=== PATIENT | male | born 1955 | race Caucasian/White ===

== ENCOUNTER → 2017-01-01 | Outpatient (CLI) | payer BC ==
[~2017-01-01] MED LIST: ALBUAER19 INH; CYM/30 PO; DTR5 PO; FLNIN/ NAE; FLUT0.0529 NAE; FLUT1INH INH; FLUT50SP45 NAE; GABA1CAP4 PO; MELO15TA4 PO; NRN/300 PO; NRN/600 PO; NRN600 PO; ONDA4TAB10 SL; PANT1TAB48 PO; PROM25TA16 PO; PRT/40 PO; SIMV40TA2 PO; VNTHFA/IN INH; ZCR40 PO
[2017-01-01 17:42] LABS: URINE APPEARANCE TURBID (CLEAR); URINE COLOR DK YELLOW; URINE EPITHELIAL CELL AUTO 20-30 /lpf (0-5); URINE NITRITE NEG (NEG); URINE PH 5.5 (4.5-7.5); URINE SPECIFIC GRAVITY 1.029 (1.000-1.030); UROBILINOGEN NEG (NEG)
[2017-01-01 17:44] LABS: MANUAL MICROSCOPIC REQUIRED? NO; REVIEW REQ? NO
[2017-01-01 17:46] LABS: URINE BILIRUBIN NEG (NEG)
== END | disposition home or self-care (01) ==
LOC: C.LABBFT 12:39
PROVIDERS: ATTEND Internal Medicine
DX: R11.0 Nausea (principal)

== ENCOUNTER 2017-01-03 07:15 | Emergency (ER) | payer BC ==
[~2017-01-03] VITALS: Ht 177.8 cm; Wt 79.0 kg
[~2017-01-03 07:15] MED LIST changes: -CYM/30 PO; -FLNIN/ NAE; -FLUT50SP45 NAE; -MELO15TA4 PO; -NRN/300 PO; -NRN/600 PO; -NRN600 PO; -ONDA4TAB10 SL; -PANT1TAB48 PO; -PROM25TA16 PO; -SIMV40TA2 PO; -VNTHFA/IN INH
[2017-01-03 07:18] VITALS: TEMP 36.5; Ht 177.8 cm; Wt 79.0 kg
[2017-01-03] MEDS ORDERED: SODIUM CHLORIDE 0.9% 1000ML 1,000 ML IV STA ×2 (07:37→08:43)
[2017-01-03] MEDS ORDERED: ONDANSETRON INJ 2 MG/ML 2 ML VIAL IV STA (07:37)
[2017-01-03] MEDS ORDERED: OPTIRAY 320 IV PRN (07:45)
[2017-01-03 08:11] LABS: BASO % 0.4 %; BASO ABS # 0.04 K/uL (0-0.2); COMPLETE YES; EOS % 0.1 %; HEMATOCRIT 47.7 % (42-52); IG% 0.2 %; LYMPH % 16.9 %; LYMPH ABS # 1.73 K/uL (1.2-3.4); MEAN CELL VOLUME 89.3 fL (80-100); MEAN CORPUSCULAR HEMOGLOBIN 31.5 pg (25-34); MEAN CORPUSCULAR HGB CONC 35.2 g/dl (32-36); MEAN PLATELET VOLUME 10.8 fL (7.4-10.4); MONO % 10.4 %; PLATELET COUNT 305 K/uL (130-400); RED BLOOD COUNT 5.34 M/uL (4.7-6.1); WHITE BLOOD COUNT 10.24 K/uL (4.8-10.8)
[2017-01-03 08:19] LABS: BUN/CREATININE RATIO 19.5 (10-20); CREATININE 1.6 mg/dl (0.60-1.40); POTASSIUM 3.6 mmol/L (3.5-5.1)
--- NOTE | 2017-01-03 08:39 | DIAGNOSTIC IMAGING REPORT ---
Right upper quadrant ultrasound GALLBLADDER-ABD LIMITED CLINICAL HISTORY: UPPER ABDOMINAL PAIN pain. Nausea. TECHNIQUE: Ultrasound COMPARISON STUDY: None FINDINGS: Mild fatty infiltration of liver. Normal gallbladder. Common bile duct 4 mm. Pancreas and right kidney unremarkable. 3 cm upper pole right renal cyst. IMPRESSION: 1. 3 cm upper pole right renal cyst. 2. Fatty infiltration of liver. 3. Otherwise negative study Electronically signed by: Ted Vazquez M.D. 01/03/2017 8:37 AM Dictated Date/Time: 01/03/2017 8:36 AM
[2017-01-03] MEDS ORDERED: NRN600 PO (08:44)
[2017-01-03] MEDS ORDERED: FLNIN/ NAE (08:44)
[2017-01-03] MEDS ORDERED: MELO15TA4 PO (08:44)
[2017-01-03] MEDS ORDERED: PROM25TA16 PO (08:44)
--- NOTE | 2017-01-03 10:35 | DIAGNOSTIC IMAGING REPORT ---
ABDOMEN AND PELVIS CT WITH IV AND ORAL CONTRAST CT DOSE: 449.03 mGy.cm HISTORY: Pain. Nausea. UPPER ABDOMINAL PAIN TECHNIQUE: Multiaxial CT images of the abdomen and pelvis were performed following the use of intravenous and oral contrast. COMPARISON STUDY: None. FINDINGS: Mild fatty infiltration of liver. Fatty replacement of the pancreas. Small stable right renal cyst. Nonobstructive bowel pattern. IMPRESSION: No acute process. Electronically signed by: Ted Vazquez M.D. 01/03/2017 10:33 AM Dictated Date/Time: 01/03/2017 10:32 AM
[2017-01-03 10:48] LABS: URINE APPEARANCE CLEAR (CLEAR); URINE BILIRUBIN NEG (NEG); URINE COLOR YELLOW; URINE EPITHELIAL CELL AUTO >30 /lpf (0-5); URINE NITRITE NEG (NEG); URINE SPECIFIC GRAVITY 1.015 (1.000-1.030); UROBILINOGEN NEG (NEG)
[2017-01-03 10:53] LABS: MANUAL MICROSCOPIC REQUIRED? NO; REVIEW REQ? YES
[2017-01-03 11:00] LABS: URINE PATH CASTS 5-10 GRANULAR CASTS /lpf (0)
[2017-01-03] MEDS ORDERED: ONDA4TAB10 SL (11:07)
--- NOTE | 2017-01-03 11:11 | EMERGENCY ROOM VISIT NOTE ---
History First contact with patient: 07:25 (Nick Barclay PA) First contact with patient: 07:25 (Jovani Moreno M.D.) Chief Complaint: GI ASSESSMENT Stated Complaint: SHAKES,STOMACH CRAMPS,CAN'T EAT/DRINK,BACK PAIN Nursing Triage Summary: abdominal pain started "abruptly" on thursday. "I dont have an appetite" patient drinking coffee. (Nick Barclay PA) History of Present Illness The patient is a 61 year old male who presents to the Emergency Room with complaints of nausea, vomiting, stomach cramps, weakness and fatigue. The patient reports that his symptoms started his past Thursday, or 5 days ago. He was seen by his PCP on and given a shot of Phenergan. The patient reports that he now has a rash on his abdomen and arms, thinking that the Phenergan may have caused an allergic reaction. The patient also reports a well -appearing yellowish colored diarrhea yesterday. Patient has been unable to eat or drink much because of his nausea. The patient does report a history of GERD, and is on pantoprazole 40 mg daily. However, he does not feel that his symptoms are secondary to reflux. He denies any history of pancreatitis, hepatitis or gallbladder disease, and denies any significant strong family history of these conditions. He denies any urinary symptoms, cough or chest pain. He rates his discomfort a 5 out of 10. The patient reports that his family doctor was trying to get authorization for a CT of the abdomen and pelvis to rule out diverticulitis, however his insurance denied the request. (Nick Barclay PA) Review of Systems HEENT: Denies dizziness, visual problems, hearing loss, tinnitus. Denies difficulty swallowing or oral lesions. PULMONARY: Denies cough, shortness of breath, sputum production or hemoptysis. CARDIOVASCULAR: Denies chest pain, palpitations, dyspnea on exertion, orthopnea or peripheral edema. GASTROINTESTINAL: See history of present illness. GENITOURINARY: Denies dysuria, frequency, urgency or nocturia. NEUROLOGIC: Denies history of epilepsy, CVA, TIA or chronic headaches. MUSCULOSKELETAL: Denies history of joint tenderness/swelling. SKIN: Denies rashes or lesions. PSYCHIATRIC: Denies history of depression or mental illness. ENDOCRINE: Denies history of diabetes or thyroid disorders. 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 (12) Vomiting Surgical Problems: (1) H/O cervical spinal arthrodesis (Jovani Moreno M.D.) Family History Cancer Diabetes mellitus Heart disease Hypertension (Nick Barclay PA) Cancer Diabetes mellitus Heart disease Hypertension (Jovani Moreno M.D.) Social History Smoking Status: Former Smoker Alcohol Use: none Drug Use: none Marital Status: in relationship Housing Status: lives with family Occupation Status: employed (Nick Barclay PA) Current/Historical Medications Scheduled Fluticasone Propionate (Fluticasone Propionate), 2 SPRAYS MARGARITA DAILY Gabapentin (Gabapentin), 1 CAP PO TID Meloxicam (Meloxicam), 15 MG PO DAILY Ondasetron Odt (Zofran Odt), 4 MG SL Q6H Oxybutynin Chloride (Oxybutynin Chloride), 5 MG PO BID Pantoprazole (Pantoprazole Sodium), 40 MG PO DAILY Promethazine HCl (Promethazine HCl), 1 TAB PO Q6 Simvastatin (Simvastatin), 40 MG PO HS Scheduled PRN Fluticasone Furoate-Vilanterol (Breo Ellipta), 1 DOSE INH DAILY PRN for SOB/ Wheezing Allergies Coded Allergies: Acetaminophen (Verified Allergy, Mild, NAUSEA AND VOMITING, 01/03/17) Codeine (Verified Allergy, Mild, PASSES OUT, 01/03/17) Hydrocodone (Verified Allergy, Mild, NAUSEA AND VOMITING, 01/03/17) Propoxyphene (Verified Allergy, Mild, PASS OUT, 01/03/17) Physical Exam Vital Signs Date Time Temp Pulse Resp B/P Pulse Ox O2 Delivery O2 Flow Rate FiO2 01/03/17 09:02 94 18 146/67 97 Room Air 01/03/17 07:18 36.5 107 16 145/81 97 Room Air (Jovani Moreno M.D.) Physical Exam CONSTITUTIONAL: Healthy and well nourished. Alert and oriented X 3 with positive affect. Patient does not appear acutely or toxic. HEENT: Normocephalic, atraumatic. Pupils equal, round and reactive. Ears and nares are clear. Nose icterus or conjunctival pallor. OROPHARYNX: Mucous membranes are dry. No tonsillar hypertrophy or exudates. NECK: Full active range of motion without discomfort. No JVD, carotid bruits or nuchal rigidity. RESPIRATORY: Clear to auscultation bilaterally with no wheezing, crackles, rhonchi or stridor. CARDIOVASCULAR: Regular rate and rhythm with no murmurs, rubs or gallops. GASTROINTESTINAL: Bowel sounds present in all quadrants. She has diffuse tenderness to palpation of the abdomen, but is more tender in the right upper quadrant region. Negative Terry sign. Negative CVA tenderness. Negative McBurney's point tenderness. No rigidity, guarding or rebound. MUSCULOSKELETAL: Full range of motion of all joints without discomfort. INTEGUMENTARY: No rash or other significant dermatologic conditions noted, especially on the abdomen and arms as the patient has reported. HEMATOLOGIC: No ecchymosis or petechiae appreciated. NEUROLOGIC: No focal neurologic deficits noted. (Nick Barclay PA) Medical Decision & Procedures ER Provider Diagnostic Interpretation: Gallbladder ultrasound does not show any evidence for stones, sludge or gallbladder wall thickening. A right renal cyst and fatty liver are noted. Radiologist report is as follows: Right upper quadrant ultrasound GALLBLADDER-ABD LIMITED CLINICAL HISTORY: UPPER ABDOMINAL PAIN pain. Nausea. TECHNIQUE: Ultrasound COMPARISON STUDY: None FINDINGS: Mild fatty infiltration of liver. Normal gallbladder. Common bile duct 4 mm. Pancreas and right kidney unremarkable. 3 cm upper pole right renal cyst. IMPRESSION: 1. 3 cm upper pole right renal cyst. 2. Fatty infiltration of liver. 3. Otherwise negative study Enhanced CT of the abdomen and pelvis does not show any other significant acute findings. Radiologist report is as follows: ABDOMEN AND PELVIS CT WITH IV AND ORAL CONTRAST CT DOSE: 449.03 mGy.cm HISTORY: Pain. Nausea. UPPER ABDOMINAL PAIN TECHNIQUE: Multiaxial CT images of the abdomen and pelvis were performed following the use of intravenous and oral contrast. COMPARISON STUDY: None. FINDINGS: Mild fatty infiltration of liver. Fatty replacement of the pancreas. Small stable right renal cyst. Nonobstructive bowel pattern. IMPRESSION: No acute process. (Nick Barclay PA) Laboratory Results 01/03/17 07:50 Red Blood Count 5.34, Mean Corpuscular Volume 89.3, Mean Corpuscular Hemoglobin 31.5, Mean Corpuscular Hemoglobin Concent 35.2, Mean Platelet Volume 10.8, Neutrophils (%) (Auto) 72.0, Lymphocytes (%) (Auto) 16.9, Monocytes (%) (Auto) 10.4, Eosinophils (%) (Auto) 0.1, Basophils (%) (Auto) 0.4, Neutrophils # (Auto ) 7.38, Lymphocytes # (Auto) 1.73, Monocytes # (Auto) 1.06, Eosinophils # (Auto ) 0.01, Basophils # (Auto) 0.04 01/03/17 07:50 Test 01/03/17 07:50 01/03/17 10:10 White Blood Count 10.24 K/uL (4.8-10.8) Red Blood Count 5.34 M/uL (4.7-6.1) Hemoglobin 16.8 g/dL (14.0-18.0) Hematocrit 47.7 % (42-52) Mean Corpuscular Volume 89.3 fL (80-100) Mean Corpuscular Hemoglobin 31.5 pg (25-34) Mean Corpuscular Hemoglobin Concent 35.2 g/dl (32-36) Platelet Count 305 K/uL (130-400) Mean Platelet Volume 10.8 fL (7.4-10.4) Neutrophils (%) (Auto) 72.0 % Lymphocytes (%) (Auto) 16.9 % Monocytes (%) (Auto) 10.4 % Eosinophils (%) (Auto) 0.1 % Basophils (%) (Auto) 0.4 % Neutrophils # (Auto) 7.38 K/uL (1.4-6.5) Lymphocytes # (Auto) 1.73 K/uL (1.2-3.4) Monocytes # (Auto) 1.06 K/uL (0.11-0.59) Eosinophils # (Auto) 0.01 K/uL (0-0.5) Basophils # (Auto) 0.04 K/uL (0-0.2) RDW Standard Deviation 47.3 fL (36.4-46.3) RDW Coefficient of Variation 14.6 % (11.5-14.5) Immature Granulocyte % (Auto) 0.2 % Immature Granulocyte # (Auto) 0.02 K/uL (0.00-0.02) Prothrombin Time 11.0 SECONDS (9.0-12.0) Prothromb Time International Ratio 1.0 (0.9-1.1) Activated Partial Thromboplast Time 25.2 SECONDS (21.0-31.0) Partial Thromboplastin Ratio 1.0 Anion Gap 14.0 mmol/L (3-11) Est Creatinine Clear Calc Drug Dose 51.3 ml/min Estimated GFR () 53.9 Estimated GFR (Non- 46.5 BUN/Creatinine Ratio 19.5 (10-20) Calcium Level 9.0 mg/dl (8.5-10.1) Total Bilirubin 0.8 mg/dl (0.2-1) Direct Bilirubin 0.2 mg/dl (0-0.2) Aspartate Amino Transf (AST/SGOT) 57 U/L (15-37) Alanine Aminotransferase (ALT/SGPT) 40 U/L (12-78) Alkaline Phosphatase 64 U/L (45-117) Total Protein 8.7 gm/dl (6.4-8.2) Albumin 4.5 gm/dl (3.4-5.0) Lipase 128 U/L (73-393) Thyroid Stimulating Hormone (TSH) 4.380 uIu/ml (0.300-4.500) (Jovani Moreno M.D.) The above labs were reviewed. BUN and creatinine are elevated at 31 and 1.6, respectively. CBC, partial renal profile, lipase and coagulation studies are normal. AST is elevated at 57. Alkaline phosphatase is normal. Urinalysis was not suggestive of infection. (Nick Barclay PA) Medications Administered Medications (Trade) Dose Ordered Sig/Lamont Route Start Time Stop Time Status Last Admin Dose Admin Sodium Chloride (Nss 1000ml) 1,000 ml @ 999 mls/hr Q1H1M STAT IV 01/03/17 07:37 01/03/17 08:37 DC 01/03/17 07:37 999 MLS/HR Ondansetron HCl 4 mg 4 mg NOW STAT IV 01/03/17 07:37 01/03/17 07:39 DC 01/03/17 07:55 4 MG Sodium Chloride (Nss 1000ml) 1,000 ml @ 999 mls/hr Q1H1M STAT IV 01/03/17 08:43 01/03/17 09:43 DC 01/03/17 08:43 999 MLS/HR (Jovani Moreno M.D.) Procedure 1. IV hydration: The patient received a 2 L normal saline bolus 2. IV medications: Zofran 4 mg IVP (Nick Barclay PA) ED Course Patient history and physical exam were performed. Nurse's notes were reviewed. Vital signs were reviewed and normal. IV access was established, and labs were drawn. The patient was initially hydrated with a liter normal saline. Review of labs, however, showed elevated BUN and creatinine, suggestive of dehydration. The patient was administered an additional liter of normal saline. Remaining labs were otherwise unremarkable. Gallbladder ultrasound and enhanced CT of the abdomen and pelvis were both normal. The patient did report feeling much better, and had no nausea at the time of discharge. The case was further discussed with Dr. Moreno, ED attending physician, who agrees with workup and plan of care. The patient was encouraged to remain well- hydrated. The patient was provided a prescription for Zofran since he had a possible reaction to Phenergan. He was encouraged to follow-up with his PCP in the next 3-5 days for reevaluation. Return to the emergency department for any worsening symptoms. The patient was happy with plan of care, and voiced understanding of all discharge instructions. (Nick Barclay PA) Medical Decision Patient presents to the emergency department with several complaints. The patient clinically appears dehydrated, and laboratory studies are also high suggestive of dehydration. The patient has no fever or leukocytosis. His ultrasound and CT scan does not show any evidence for cholecystitis, diverticulitis or other acute intra-abdominal findings. Laboratory studies also are not suggestive of UTI. (Nick Barclay PA) Impression Primary Impression: Dehydration Additional Impressions: Abdominal pain Weakness Departure Information Prescriptions Ondasetron Odt (ZOFRAN ODT) 4 Mg Tab 4 MG SL Q6H for Nausea, #10 TAB Prov: Nick Barclay PA 01/03/17 Referrals Ramon Echavarria M.D. (PCP) Patient Instructions My [facility] Problem Qualifiers Additional Impressions: Abdominal pain Abdominal location: generalized Qualified Codes: R10.84 - Generalized abdominal pain
[2017-01-03 11:18] VITALS: BP 141/84; PULSE 67; O2SAT 97
[2017-07-29] MEDS ORDERED: NRN/300 PO (07:49)
[2017-07-29] MEDS ORDERED: CYM/30 PO (07:49)
[2017-07-29] MEDS ORDERED: VNTHFA/IN INH (07:49)
[2017-07-29] MEDS ORDERED: SIMV40TA2 PO (07:49)
[2017-07-29] MEDS ORDERED: FLUT50SP45 NAE (07:49)
[2017-07-29] MEDS ORDERED: PANT1TAB48 PO (07:49)
[2017-07-29] MEDS ORDERED: NRN/600 PO (07:58)
== END 2017-01-03 11:20 | disposition home or self-care (01) ==
LOC: C.EDB 07:18
DX: E86.0 Dehydration (principal); R10.84 Generalized abdominal pain; R53.1 Weakness; K21.9 Gastro-esophageal reflux disease without esophagitis; J45.909 Unspecified asthma, uncomplicated; M54.9 Dorsalgia, unspecified; G89.29 Other chronic pain; E78.5 Hyperlipidemia, unspecified; N40.1 Benign prostatic hyperplasia with lower urinary tract symptoms; M51.36 Other intervertebral disc degeneration, lumbar region; Z87.891 Personal history of nicotine dependence; Z79.899 Other long term (current) drug therapy

== ENCOUNTER → 2017-02-06 | Outpatient (CLI) | payer BC ==
[~2017-02-06] MED LIST changes: -ALBUAER19 INH; +CYM/30 PO; +FLNIN/ NAE; -FLUT0.0529 NAE; +FLUT50SP45 NAE; -GABA1CAP4 PO; +MELO15TA4 PO; +NRN/300 PO; +NRN/600 PO; +NRN600 PO; +ONDA4TAB10 SL; +PANT1TAB48 PO; +PROM25TA16 PO; +SIMV40TA2 PO; +VNTHFA/IN INH
--- NOTE | 2017-02-06 08:57 | DIAGNOSTIC IMAGING REPORT ---
LUMBAR SPINE MRI HISTORY: Pain LUMBAR PAIN TECHNIQUE: Multiplanar multisequence MRI of the lumbar spine was performed without the use of contrast. COMPARISON: None. FINDINGS: For the purpose of the report the L5-S1 disc space will be located on axial image 27 of 30. Normal signal characteristics of the vertebral bodies as well as intervertebral discs L1-L2: No significant central canal or neural foraminal narrowing. L2-L3: No significant central canal or neural foraminal narrowing. L3-L4: No significant central canal or neural foraminal narrowing. L4-L5: No significant central canal or neural foraminal narrowing. L5-S1: No significant central canal or neural foraminal narrowing. IMPRESSION: Normal study Electronically signed by: Ted Vazquez M.D. 02/06/2017 8:56 AM Dictated Date/Time: 02/06/2017 8:53 AM
== END | disposition home or self-care (01) ==
LOC: C.MRI 07:49
PROVIDERS: ATTEND Orthopaedic Surgery Orthopaedic Surgery of the Spine
DX: M54.5 Low back pain (principal)

== ENCOUNTER → 2017-03-10 | Outpatient (CLI) | payer BC ==
[~2017-03-10] MED LIST changes: +PANT40TA2 PO; -PRT/40 PO
[2017-03-10 13:01] LABS: CHOLESTEROL/HDL RATIO 2.6
[2017-03-10 13:09] LABS: ESTIMATED AVERAGE GLUCOSE 114 mg/dl; HA1C FLAG Normal (Normal)
== END | disposition home or self-care (01) ==
LOC: C.LABBFT 10:22
PROVIDERS: ATTEND Internal Medicine
DX: R73.01 Impaired fasting glucose (principal); E78.00 Pure hypercholesterolemia, unspecified

== ENCOUNTER → 2017-04-16 | Outpatient (CLI) | payer BC ==
--- NOTE | 2017-04-16 10:36 | DIAGNOSTIC IMAGING REPORT ---
LEFT HAND 3 VIEWS HISTORY: LEFT THUMB PAIN COMPARISON: None. FINDINGS: There is no fracture or dislocation. Soft tissue swelling within the left thumb. Minimal osteoarthritis at the first MCP joint and DIP joints. No radiopaque foreign bodies. IMPRESSION: Minimal osteoarthritis. Soft tissue swelling within the left thumb. No fractures. Electronically signed by: Mal Harkins M.D. 04/16/2017 10:34 AM Dictated Date/Time: 04/16/2017 10:33 AM
== END | disposition home or self-care (01) ==
LOC: C.RDSM 10:28
PROVIDERS: ATTEND Physician Assistant
DX: M79.645 Pain in left finger(s) (principal); M79.89 Other specified soft tissue disorders

== ENCOUNTER → 2017-05-27 | Outpatient (CLI) | payer BC ==
[~2017-05-27] MED LIST changes: -PANT40TA2 PO; +PRT/40 PO
--- NOTE | 2017-05-27 10:56 | DIAGNOSTIC IMAGING REPORT ---
SI JOINTS 3 OR MORE VIEWS CLINICAL HISTORY: M46.1 Sacroiliitis pain COMPARISON STUDY: None FINDINGS: Minimal degenerative sclerosis of the sacroiliac joints. No evidence for bony ankylosis. Sacral foramina are symmetric. IMPRESSION: Minimal degenerative sclerosis of the sacral iliac joints. No acute bony abnormality. Electronically signed by: Ted Vazquez M.D. 05/27/2017 10:55 AM Dictated Date/Time: 05/27/2017 10:55 AM
--- NOTE | 2017-05-27 10:57 | DIAGNOSTIC IMAGING REPORT ---
PELVIS 1 OR 2 VIEW ROUTINE CLINICAL HISTORY: M46.1 Sacroiliitis COMPARISON: None. DISCUSSION: The bones and joint spaces appear intact. There is no evidence of fracture, dislocation or bony disease. There is no evidence for soft tissue swelling. IMPRESSION: Negative study. Electronically signed by: Ted Vazquez M.D. 05/27/2017 10:56 AM Dictated Date/Time: 05/27/2017 10:55 AM
--- NOTE | 2017-05-27 10:58 | DIAGNOSTIC IMAGING REPORT ---
LEFT HIP UNILATERAL 2 VIEWS CLINICAL HISTORY: M46.1 Sacroiliitis pain COMPARISON: None. DISCUSSION: The bones and joint spaces appear intact. There is no evidence of fracture, dislocation or bony disease. Minimal calcific trochanteric bursitis. No evidence for acetabular protrusion. IMPRESSION: Minimal calcific trochanteric bursitis. Otherwise negative study. Electronically signed by: Ted Vazquez M.D. 05/27/2017 10:57 AM Dictated Date/Time: 05/27/2017 10:56 AM
--- NOTE | 2017-05-27 10:59 | DIAGNOSTIC IMAGING REPORT ---
RIGHT HIP UNILATERAL 2 VIEWS CLINICAL HISTORY: M46.1 Sacroiliitis Right pain COMPARISON: None. DISCUSSION: The bones and joint spaces appear intact. There is no evidence of fracture, dislocation or bony disease. There is no evidence for soft tissue swelling. IMPRESSION: Negative study. Electronically signed by: Ted Vazquez M.D. 05/27/2017 10:58 AM Dictated Date/Time: 05/27/2017 10:58 AM
== END | disposition home or self-care (01) ==
LOC: C.RAD1850 10:26
PROVIDERS: ATTEND Physician Assistant Medical
DX: M46.1 Sacroiliitis, not elsewhere classified (principal); M70.62 Trochanteric bursitis, left hip

== ENCOUNTER → 2017-05-27 | Outpatient (CLI) | payer BC ==
[2017-05-27 12:24] LABS: BASO % 0.8 %; BASO ABS # 0.05 K/uL (0-0.2); COMPLETE YES; EOS % 6.5 %; HEMATOCRIT 46.4 % (42-52); IG% 0.3 %; LYMPH % 34.3 %; LYMPH ABS # 2.26 K/uL (1.2-3.4); MEAN CELL VOLUME 91.3 fL (80-100); MEAN CORPUSCULAR HEMOGLOBIN 29.7 pg (25-34); MEAN CORPUSCULAR HGB CONC 32.5 g/dl (32-36); MEAN PLATELET VOLUME 11.1 fL (7.4-10.4); MONO % 7.1 %; PLATELET COUNT 274 K/uL (130-400); RED BLOOD COUNT 5.08 M/uL (4.7-6.1); WHITE BLOOD COUNT 6.58 K/uL (4.8-10.8)
[2017-05-27 13:24] LABS: ALT/SGPT 30 U/L (12-78); BLOOD UREA NITROGEN 11 mg/dl (7-18); BUN/CREATININE RATIO 11.4 (10-20); CARBON DIOXIDE 26 mmol/L (21-32); CHLORIDE 107 mmol/L (98-107); GLUCOSE 104 mg/dl (70-99); POTASSIUM 3.9 mmol/L (3.5-5.1); SODIUM 140 mmol/L (136-145)
[2017-05-27 13:27] LABS: ALB/GLOB RATIO 1.1 (0.9-2); ALKALINE PHOSPHATASE 58 U/L (45-117); AST/SGOT 22 U/L (15-37)
== END | disposition home or self-care (01) ==
LOC: C.LABBFT 09:50
PROVIDERS: ATTEND Physician Assistant Medical
DX: K62.5 Hemorrhage of anus and rectum (principal)

== ENCOUNTER → 2017-08-05 | Day surgery (SDC) | payer BC ==
[2017-07-29 07:49] VITALS: Ht 180.3 cm; Wt 78.2 kg
[~2017-08-05] VITALS: Ht 180.3 cm; Wt 78.2 kg
[~2017-08-05] MED LIST changes: -FLNIN/ NAE; +LIDOCAINE HCL 2% 2 ML VIAL (20MG/ML) ONE; -MELO15TA4 PO; -NRN/300 PO; -NRN600 PO; -ONDA4TAB10 SL; -PROM25TA16 PO; +PROPOFOL IV EMULSION 10 MG/ML 20 ML VIAL IV ONE; -PRT/40 PO; -ZCR40 PO
--- NOTE | 2017-08-05 13:38 | Endo History and Physical ---
History & Physical Date of Service: Aug 05, 2017. Chief Complaint: dysphagia, esophageal stricture Referring Physician: [place] History of Present Illness 62 yo CM who presents for EGD secondary to dysphagia and history of esophageal stricture. Past Medical History Arthritis, Asthma, Male Genitourinary Prob., Reflux, High Cholesterol, COPD Past Surgical History Hx Cardiac Surgery: No Hx Internal Defibrillator: No Hx Pacemaker: No Hx Abdominal Surgery: No Hx of Implantable Prosthesis: No Hx Post-Op Nausea and Vomiting: No Hx Cancer Surgery: No Hx Thoracic Surgery: No Hx Orthopedic: Yes (LEFT SHOULDER SX X 2, CERVICAL FUSION) Hx Urinary Tract Surgery: No Family History None Social History Smoking Status: Former Smoker Hx Substance Use: Yes (MARIJUANA RARELY) Hx Alcohol Use: No Allergies Coded Allergies: Acetaminophen (Verified Allergy, Mild, NAUSEA AND VOMITING, 08/05/17) Codeine (Verified Allergy, Mild, PASSES OUT, 08/05/17) Hydrocodone (Verified Allergy, Mild, NAUSEA AND VOMITING, 08/05/17) Propoxyphene (Verified Allergy, Mild, PASS OUT, 08/05/17) Current Medications Reported Home Medications Medications Dose Route/Sig Max Daily Dose Days Date Category Neurontin (Gabapentin) 600 Mg Tab 600 Mg PO TID 07/29/17 Reported Cymbalta (Duloxetine HCl) 30 Mg Cap 1 Cap PO QAM 30 07/29/17 Reported Zocor (Simvastatin) 40 Mg Tab 40 Mg PO QAM 07/29/17 Reported Protonix (Pantoprazole) 40 Mg Tab 40 Mg PO BID 07/29/17 Reported Allergy Nasal [place] 24 Ho (Fluticasone Propionate (Nasal)) 50 Mcg/Act Spr 1 [place] MARGARITA QAM 07/29/17 Reported Ventolin Hfa (Albuterol) 200 Puffs/45135 Mcg Aers 2-4 Puffs INH Q6H PRN 07/29/17 Reported Oxybutynin Chloride 5 Mg Tab 5 Mg PO BID 03/05/16 Reported Breo Ellipta (Fluticasone Furoate-Vilanterol) 1 Inh Inh 1 Dose INH DAILY PRN 02/06/16 Reported Vital Signs Weight (Kilograms): 78.18 Height (Feet): 5 Height (Inches): 11 Date Time Temp Pulse Resp B/P (MAP) Pulse Ox O2 Delivery O2 Flow Rate FiO2 08/05/17 13:17 36.7 48 18 132/69 (90) 96 Room Air Physical Exam General Appearance: WD/WN, no apparent distress Respiratory/Chest: Auscultation: breath sounds normal Cardiovascular: Heart Auscultation: RRR Abdomen: Bowel Sounds: normal Inspection & Palpation: soft, non-distended, no tenderness, guarding & rebound Assessment and Plan Assessment: 62 yo CM who presents for EGD secondary to dysphagia and history of esophageal stricture. Plan: Proceed with EGD.
--- NOTE | 2017-08-05 13:58 | Discharge Instructions ---
Endoscopy Patient Instructions Date / Procedure(s) Performed Aug 05, 2017. EGD Allergy Information Coded Allergies: Acetaminophen (Verified Allergy, Mild, NAUSEA AND VOMITING, 08/05/17) Codeine (Verified Allergy, Mild, PASSES OUT, 08/05/17) Hydrocodone (Verified Allergy, Mild, NAUSEA AND VOMITING, 08/05/17) Propoxyphene (Verified Allergy, Mild, PASS OUT, 08/05/17) Discharge Date / Findings Aug 05, 2017. Esophageal stricture s/p dilation from 18 to 20 mm Medication Instructions OK to resume all medications today as prescribed Reported Home Medications Medications Dose Route/Sig Max Daily Dose Days Date Category Neurontin (Gabapentin) 600 Mg Tab 600 Mg PO TID 07/29/17 Reported Cymbalta (Duloxetine HCl) 30 Mg Cap 1 Cap PO QAM 30 07/29/17 Reported Zocor (Simvastatin) 40 Mg Tab 40 Mg PO QAM 07/29/17 Reported Protonix (Pantoprazole) 40 Mg Tab 40 Mg PO BID 07/29/17 Reported Allergy Nasal [place] 24 Ho (Fluticasone Propionate (Nasal)) 50 Mcg/Act Spr 1 [place] MARGARITA QAM 07/29/17 Reported Ventolin Hfa (Albuterol) 200 Puffs/45539 Mcg Aers 2-4 Puffs INH Q6H PRN 07/29/17 Reported Oxybutynin Chloride 5 Mg Tab 5 Mg PO BID 03/05/16 Reported Breo Ellipta (Fluticasone Furoate-Vilanterol) 1 Inh Inh 1 Dose INH DAILY PRN 02/06/16 Reported Provider Instructions Activity Restrictions - No exercising or heavy lifting for 24 hours. - Do not drink alcohol the day of the procedure. - Do not drive a car or operate machinery until the day after the procedure. - Do not make any important decisions or sign important papers in 24 hours after the procedure. Following Day: - Return to full activity which may include returning to work/school. Diet Start your diet with liquids and light foods (jello, soup, juice, toast). Then eat your usual diet if not nauseated. Treatment For Common After Affects For mild abdominal pain, bloating, or excessive gas: - Rest - Eat lightly - Lie on right side Follow-Up Information Follow-up with [place] as scheduled Anesthesia Information What You Should Know You have had a procedure that required some medicine to reduce anxiety and discomfort. This treatment is called moderate sedation. After receiving the treatment, you may be sleepy, but you will be able to breathe on your own. The effects of the treatment may last for several hours. Follow these instructions along with Activity/Diet recommendations noted above: * Do NOT do anything where dizziness or clumsiness would be dangerous. * Rest quietly at home today, then you can be up and about tomorrow. * Have a responsible person stay with you the rest of today. * You may have had an I.V. today. If so, you may take the dressing off later today. Recommendations Call your doctor if: * Trouble breathing * Continuous vomiting for more than 24 hours * Temperature above 101 degrees * Severe abdominal pain or bloating * Pain not relieved by pain medicine ordered * There is increased drainage or redness from any incision * A large amount of rectal bleeding greater than 2-3 tablespoons. (If you had a polyp/s removed or have hemorrhoids, a small amount of blood - from the rectum is to be expected.) * You have any unanswered questions or concerns. IN THE EVENT OF A SERIOUS EMERGENCY, GO TO THE NEAREST EMERGENCY ROOM Your discharge instructions were prepared by provider Be Bazan. Patient Instructions Signature Page Nitin Tejada Patient (or Guardian) Signature/Date: I have read and understand the instructions given to me by my caregivers. Caregiver/RN/Doctor Signature/Date: The above-named patient and/or guardian has received patient instructions on this date. + Original Patient Signature Page (only) stays with chart. Please make copy for patient.
--- NOTE | 2017-08-05 14:12 | GI REPORT ---
Procedure Date: 08/05/2017 1:35 PM Procedure: Upper GI endoscopy Indications: Dysphagia Medicines: Monitored Anesthesia Care Complications: No immediate complications. Estimated Blood Loss: Estimated blood loss: none. Procedure: Pre-Anesthesia Assessment: - Prior to the procedure, a History and Physical was performed, and patient medications and allergies were reviewed. The patient's tolerance of previous anesthesia was also reviewed. The risks and benefits of the procedure and the sedation options and risks were discussed with the patient. All questions were answered, and informed consent was obtained. Prior Anticoagulants: The patient has taken no previous anticoagulant or antiplatelet agents. ASA Grade Assessment: III - A patient with severe systemic disease. After reviewing the risks and benefits, the patient was deemed in satisfactory condition to undergo the procedure. After obtaining informed consent, the endoscope was passed under direct vision. Throughout the procedure, the patient's blood pressure, pulse, and oxygen saturations were monitored continuously. The scope was introduced through the mouth, and advanced to the second part of duodenum. The upper GI endoscopy was accomplished without difficulty. The patient tolerated the procedure well. Findings: One moderate benign-appearing, intrinsic stenosis was found. This measured 1.4 cm (inner diameter) x 1 cm (in length) and was traversed. A TTS dilator was passed through the scope. Dilation with an 18-19-20 mm balloon (to a maximum balloon size of 20 mm) dilator was performed. The dilation site was examined and showed moderate improvement in luminal narrowing. The stomach was normal. The examined duodenum was normal. Impression: - Benign-appearing esophageal stenosis. Dilated. - Normal stomach. - Normal examined duodenum. - No specimens collected. Recommendation: - Resume previous diet. - Continue present medications. - Repeat the upper endoscopy PRN for retreatment. - Return to primary care physician as previously scheduled. Be Bazan DO 08/05/2017 2:11:32 PM This report has been signed electronically. Note Initiated On: 08/05/2017 1:35 PM I attest to the content of the Intraoperative Record and orders documented therein, exceptions below
[2017-08-05 14:40] VITALS: BP 135/71; PULSE 53; O2SAT 97
--- NOTE | 2017-08-05 15:10 | Anesthesiology Progress Note ---
Anesthesia Post Op Note Date & Time Aug 05, 2017 at 15:10 Vital Signs Pain Intensity: 0 Vital Signs Past 12 Hours Date Time Temp Pulse Resp B/P (MAP) Pulse Ox O2 Delivery O2 Flow Rate FiO2 08/05/17 14:40 53 16 135/71 (92) 97 Room Air 08/05/17 14:30 52 16 139/78 (98) 98 Room Air 08/05/17 14:15 51 16 124/68 (86) 96 Room Air 08/05/17 14:00 61 16 112/65 (81) 95 Room Air 08/05/17 13:17 36.7 48 18 132/69 (90) 96 Room Air Notes Mental Status: alert / awake / arousable, participated in evaluation Pt Amnestic to Procedure: Yes Nausea / Vomiting: adequately controlled Pain: adequately controlled Airway Patency, RR, SpO2: stable & adequate BP & HR: stable & adequate Hydration State: stable & adequate Anesthetic Complications: no major complications apparent
== END | disposition home or self-care (01) ==
LOC: C.GI 12:54
PROVIDERS: ATTEND Internal Medicine
DX: K22.2 Esophageal obstruction (principal); R13.10 Dysphagia, unspecified; J44.9 Chronic obstructive pulmonary disease, unspecified; M19.90 Unspecified osteoarthritis, unspecified site; E78.00 Pure hypercholesterolemia, unspecified; Z79.899 Other long term (current) drug therapy

== ENCOUNTER → 2017-09-15 | Outpatient (CLI) | payer BC ==
[~2017-09-15] MED LIST changes: -LIDOCAINE HCL 2% 2 ML VIAL (20MG/ML) ONE; -PROPOFOL IV EMULSION 10 MG/ML 20 ML VIAL IV ONE
[2017-09-15 12:46] LABS: BLOOD UREA NITROGEN 16 mg/dl (7-18); CREATININE 0.98 mg/dl (0.60-1.40)
== END | disposition home or self-care (01) ==
LOC: C.LABBFT 08:08
PROVIDERS: ATTEND Psychiatry & Neurology Neurology
DX: Z00.00 Encounter for general adult medical examination without abnormal findings (principal)

== ENCOUNTER → 2017-09-18 | Outpatient (CLI) | payer BC ==
[~2017-09-18] MED LIST changes: +GADAVIST IV PRN
--- NOTE | 2017-09-18 10:20 | DIAGNOSTIC IMAGING REPORT ---
THORACIC SPINE COMBO HISTORY: 62 years-old Male M54.6 Pain in thoracic [id number] acute thoracic spine pain without specific trauma. No reported history of cancer. COMPARISON: Bone scan 03/17/2016, CT chest 05/08/2014, CT 01/03/2017, CT abdomen and pelvis 01/03/2017 TECHNIQUE: Multiplanar multisequence MRI of the thoracic spine was obtained both with and without the use of 7.9 mL Gadavist. FINDINGS: Fusion hardware of the cervical spine at C5-C6 and C6-C7 noted on the large field of view load out person images. No acute intrathoracic or paraspinal abnormal bowel identified. Circumscribed 2.7 cm T2 hyperintense cystic lesion of the superior pole right kidney is noted, unchanged from comparison CT suggesting a cyst. There are at least three T2 hyperintense, T1 hypointense enhancing lesions of the right hepatic lobe, largest of which measures 1.0 cm within the posterior right hepatic lobe subserosal distribution. Hyperattenuating lesions were seen within the right hepatic lobe on image 264 series 4 and also within the left hepatic lobe image [address] 05/08/2014. Mild dependent bibasilar atelectasis. Modic type II endplate degenerative changes at T8-T9. Moderate intervertebral disc space narrowing is also present at this level. No focal bone marrow edema, fracture or marrow replacing process. No compression deformity. Signal within the cord is within normal limits. No abnormal enhancement of the spine, thoracic cord or central canal. Mild multilevel facet arthropathy and endplate spurring without significant central canal or foraminal narrowing. Mild multilevel ligament flavum thickening. IMPRESSION: 1. Modic type II endplate degenerative changes at T8-T9 with moderate intervertebral disc space narrowing at this level. No high-grade central canal or foraminal narrowing. 2. Mild multilevel endplate spurring and facet arthropathy. No fracture. 3. No abnormal enhancement of the spine or central canal. 4. At least three T2 hyperintense enhancing lesions of the posterior right hepatic lobe as above measuring up to 1.0 cm are nonspecific and likely reflect flash filling hemangiomas as seen on comparison chest CT 05/08/2014. Further evaluation however with liver MRI would be helpful to further characterize. The above report was generated using voice recognition software. It may contain grammatical, syntax or spelling errors. Electronically signed by: Gato Brown M.D. 09/18/2017 10:19 AM Dictated Date/Time: 09/18/2017 9:28 AM
== END | disposition home or self-care (01) ==
LOC: C.MRIBC 07:31
PROVIDERS: ATTEND Psychiatry & Neurology Neurology
DX: M51.34 Other intervertebral disc degeneration, thoracic region (principal); R93.2 Abnormal findings on diagnostic imaging of liver and biliary tract

== ENCOUNTER → 2017-11-02 | Outpatient (CLI) | payer BC ==
[~2017-11-02] MED LIST changes: -GADAVIST IV PRN
[2017-11-02 17:50] LABS: BLOOD UREA NITROGEN 13 mg/dl (7-18); CREATININE 0.98 mg/dl (0.60-1.40)
== END | disposition home or self-care (01) ==
LOC: C.LABBFT 14:22
PROVIDERS: ATTEND Internal Medicine
DX: R93.8 Abnormal findings on diagnostic imaging of other specified body structures (principal)

== ENCOUNTER → 2017-11-03 | Outpatient (CLI) | payer BC ==
[~2017-11-03] MED LIST changes: +GADOXETATE DISODIUM (NON-WT BASED PROCEDURE) IV PRN
--- NOTE | 2017-11-03 09:34 | DIAGNOSTIC IMAGING REPORT ---
MRI OF THE ABDOMEN COMBO CLINICAL HISTORY: Follow-up liver lesions seen by thoracic spine MRI. COMPARISON STUDY: Abdominal CT dated . Abdominal ultrasound dated . MRI of the thoracic spine dated 09/18/2017. TECHNIQUE: MRI of the abdomen is performed transverse T1 and T2-weighted sequences in the axial and coronal planes. Contrast enhanced sequences were acquired following the IV administration of 10 cc of Eovist subtraction imaging was utilized. MRCP images were obtained. 3-D reformats were created and assessed. FINDINGS: Lower chest: No pleural effusion is identified. The heart is normal in size. Liver: The liver is normal in size, contour, and signal intensity. No intrahepatic biliary ductal dilatation is seen. The hepatic veins and portal veins are patent. There are least 4 subcentimeter T2 hyperintense lesions identified within the right lobe of the liver. The largest measures up to 8 mm and is best seen on axial FIESTA image #11. These demonstrate foci of peripheral nodular enhancement on the arterial phase sequences with delayed fill-in. These do not retain Eovist on the delayed series and are typical in appearance for tiny hemangiomas. Gallbladder: The gallbladder is normal in appearance. No gallstones are seen. The common bile duct is normal in caliber, measuring up to 3 mm. No filling defects are seen to suggest choledocholithiasis. The pancreatic duct is normal in caliber. Spleen: Normal in size and signal intensity. Pancreas: Unremarkable. Adrenal glands: Unremarkable. Kidneys: The kidneys are normal in size and without hydronephrosis. The kidneys enhance and excrete symmetrically. A 2.9 cm cyst is noted in the right kidney. Abdominal aorta: Normal in caliber. Bowel: Visualized portions of the small bowel and colon show no evidence of obstruction. Peritoneum: There is no abdominal ascites. Lymphadenopathy: None. Skeletal structures: Visualized skeletal structures times are normal marrow signal intensity. IMPRESSION: 1. There are at least 4 subcentimeter T2 hyperintense lesions in the right lobe of the liver. The enhancement kinetics are typical for benign hemangiomas. 2. No acute abnormality is seen. 3. Normal MRCP. Electronically signed by: Vazquez Smith M.D. 11/03/2017 9:32 AM Dictated Date/Time: 11/03/2017 9:12 AM
== END | disposition home or self-care (01) ==
LOC: C.MRI 07:37
PROVIDERS: ATTEND Internal Medicine
DX: R93.8 Abnormal findings on diagnostic imaging of other specified body structures (principal); K76.9 Liver disease, unspecified

== ENCOUNTER → 2017-11-10 | Outpatient (CLI) | payer BC ==
[~2017-11-10] MED LIST changes: -GADOXETATE DISODIUM (NON-WT BASED PROCEDURE) IV PRN; +PANT1TAB3 PO; -PANT1TAB48 PO
[2017-11-10 12:20] LABS: BASO % 0.7 %; BASO ABS # 0.04 K/uL (0-0.2); COMPLETE YES; EOS % 6.6 %; HEMATOCRIT 44.7 % (42-52); IG% 0.2 %; LYMPH ABS # 2.01 K/uL (1.2-3.4); MEAN CELL VOLUME 92.4 fL (80-100); MEAN CORPUSCULAR HEMOGLOBIN 30.8 pg (25-34); MEAN CORPUSCULAR HGB CONC 33.3 g/dl (32-36); MEAN PLATELET VOLUME 11.4 fL (7.4-10.4); MONO % 6.6 %; NEUT % 48.9 %; PLATELET COUNT 261 K/uL (130-400); RED BLOOD COUNT 4.84 M/uL (4.7-6.1); WHITE BLOOD COUNT 5.43 K/uL (4.8-10.8)
[2017-11-10 12:32] LABS: C-REACTIVE PROTEIN < 0.29 mg/dl (0-0.29); RHEUMATOID FACTOR < 10.0 U/mL (0-15)
[2017-11-10 13:19] LABS: LYME DISEASE AB IGG NEG (NEG)
[2017-11-10 13:32] LABS: LYME DISEASE AB IGM POS (NEG)
[2017-11-13 14:56] LABS: 18KDIGG BAND REACTIVE (NONREACTIVE); 23KDIGG BAND REACTIVE (NONREACTIVE); 23KDIGM BAND REACTIVE (NONREACTIVE); 28KDIGG BAND NONREACTIVE (NONREACTIVE); 30KDIGG BAND NONREACTIVE (NONREACTIVE); 39KDIGG BAND NONREACTIVE (NONREACTIVE); 39KDIGM BAND NONREACTIVE (NONREACTIVE); 41KDIGG BAND NONREACTIVE (NONREACTIVE); 41KDIGM BAND NONREACTIVE (NONREACTIVE); 45KDIGG BAND NONREACTIVE (NONREACTIVE); 58KDIGG BAND REACTIVE (NONREACTIVE); 66KDIGG BAND NONREACTIVE (NONREACTIVE); 93KDIGG BAND NONREACTIVE (NONREACTIVE)
== END | disposition home or self-care (01) ==
LOC: C.LABBFT 10:01
PROVIDERS: ATTEND Orthopaedic Surgery Orthopaedic Surgery of the Spine
DX: M54.9 Dorsalgia, unspecified (principal)

== ENCOUNTER 2018-03-14 19:00 | Emergency (ER) | payer BC, OTHER ==
[~2018-03-14] VITALS: Ht 177.8 cm; Wt 81.5 kg
[2018-03-14 19:07] VITALS: TEMP 36.8; Ht 177.8 cm; Wt 81.5 kg
[2018-03-14] MEDS ORDERED: ONDANSETRON INJ 2 MG/ML 2 ML VIAL IV STA (19:17)
[2018-03-14] MEDS ORDERED: KETOROLAC TROMETHAMINE 30 MG/ML VIAL IV STA (19:17)
[2018-03-14] MEDS ORDERED: SODIUM CHLORIDE 0.9% 1000ML 2,000 ML IV STA (19:17)
[2018-03-14 19:36] LABS: BASO % 0.2 %; BASO ABS # 0.03 K/uL (0-0.2); EOS % 7.3 %; EOS ABS # 1.06 K/uL (0-0.5); HEMATOCRIT 40.1 % (42-52); HEMOGLOBIN 14.2 g/dL (14.0-18.0); IG# 0.02 K/uL (0.00-0.02); LYMPH % 13.9 %; LYMPH ABS # 2.03 K/uL (1.2-3.4); MEAN CELL VOLUME 89.3 fL (80-100); MEAN CORPUSCULAR HEMOGLOBIN 31.6 pg (25-34); MEAN CORPUSCULAR HGB CONC 35.4 g/dl (32-36); MEAN PLATELET VOLUME 10.6 fL (7.4-10.4); MONO ABS # 1.31 K/uL (0.11-0.59); NEUT % 69.5 %; NEUT ABS # 10.17 K/uL (1.4-6.5); PLATELET COUNT 263 K/uL (130-400); RED CELL DISTRIBUTION WIDTH CV 14.7 % (11.5-14.5); RED CELL DISTRIBUTION WIDTH SD 48.2 fL (36.4-46.3); WHITE BLOOD COUNT 14.62 K/uL (4.8-10.8)
--- NOTE | 2018-03-14 19:48 | DIAGNOSTIC IMAGING REPORT ---
CHEST ONE VIEW PORTABLE CLINICAL HISTORY: 62 years-old Male presenting with cough, weakness, bodyaches. TECHNIQUE: Portable upright AP view of the chest was obtained. COMPARISON: 07/16/2016. FINDINGS: Atherosclerosis of the aortic arch. Cardiac silhouette top normal in size. No focal opacity. No large effusion or pneumothorax. Anterior cervical fusion hardware. Degenerative changes of the spine. Chronically widened left acromioclavicular joint. Upper abdomen normal. IMPRESSION: 1. No acute cardiopulmonary disease. Electronically signed by: Mansoor Gibson M.D. 03/14/2018 7:47 PM Dictated Date/Time: 03/14/2018 7:46 PM
[2018-03-14 19:56] LABS: INFLUENZA B ANTIGEN Neg for Influ B (NEG)
[2018-03-14 20:08] LABS: ALBUMIN 3.7 gm/dl (3.4-5.0); CALCIUM 8.6 mg/dl (8.5-10.1); CREATININE 0.98 mg/dl (0.60-1.40); POTASSIUM 3.3 mmol/L (3.5-5.1); TOTAL PROTEIN 7.6 gm/dl (6.4-8.2)
[2018-03-14] MEDS ORDERED: NXM/40 PO (20:15)
[2018-03-14] MEDS ORDERED: LEVO1TAB35 PO (20:42)
[2018-03-14] MEDS ORDERED: BENZ100C18 PO (20:42)
[2018-03-14] MEDS ORDERED: LEVOFLOXACIN 250 MG TAB PO ONE (20:45)
[2018-03-14 20:51] VITALS: BP 138/74; PULSE 90; O2SAT 98
--- NOTE | 2018-03-14 21:49 | EMERGENCY ROOM VISIT NOTE ---
History Report prepared by Cali: Hailey Sim Under the Supervision of: Dr. Surinder Costa D.O. First contact with patient: 19:10 Chief Complaint: COUGH Stated Complaint: COUGHING,WEAK,BODY ACHES,COLD/HOT Nursing Triage Summary: Patient presents with c/o cough, body aches, chills History of Present Illness The patient is a 62 year old male who presents to the Emergency Room with complaints of persistent cough starting 2.5 weeks ago. His cough produced yellow /black sputum at first, but has become clear now. 4 days ago, he started feeling weak and body aches. He has a sore throat and decreased appetite. He denies any ear pain, rhinorrhea, abdominal pain, urinary symptoms, or fever. He has a history of COPD, asthma, and high cholesterol. He denies any sick contacts. Pain is a 10 out of 10 with coughing. No exacerbating or remitting factors. Source of History: patient Onset: 2.5 weeks ago Position: chest Quality: other (cough) Timing: other (persistent) Associated Symptoms: + sorethroat, + weakness, No fevers, No abdominal pain , No urinary symptoms Note: Pt reports body aches. Review of Systems See HPI for pertinent positives & negatives. A total of 10 systems reviewed and were otherwise negative. 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 (12) Vomiting Surgical Problems: (1) H/O cervical spinal arthrodesis Family History Cancer Diabetes mellitus Heart disease Hypertension Social History Smoking Status: Former Smoker Alcohol Use: none Drug Use: none Marital Status: in relationship Housing Status: lives with family Occupation Status: employed Current/Historical Medications Scheduled Benzonatate (Tessalon Perles), 100 MG PO TID Esomeprazole Magnesium (Nexium), 40 MG PO QAM Fluticasone Propionate (Nasal) (Allergy Nasal [place] 24 Ho), 1 SPRAY MARGARITA QAM Gabapentin (Neurontin), 600 MG PO TID Levofloxacin (Levaquin), 750 MG PO QD@08 Oxybutynin Chloride (Oxybutynin Chloride), 5 MG PO BID Simvastatin (Zocor), 40 MG PO QAM Scheduled PRN Albuterol Hfa (Ventolin Hfa), 2-4 PUFFS INH Q6H PRN for Shortness of Breath Fluticasone Furoate-Vilanterol (Breo Ellipta), 1 DOSE INH QAM PRN for SOB/ Wheezing Allergies Coded Allergies: Codeine (Verified Allergy, Intermediate, PASSES OUT, 03/14/18) Hydrocodone (Verified Allergy, Intermediate, NAUSEA AND VOMITING, 03/14/18) Propoxyphene (Verified Allergy, Intermediate, PASS OUT, 03/14/18) Physical Exam Vital Signs Date Time Temp Pulse Resp B/P (MAP) Pulse Ox O2 Delivery O2 Flow Rate FiO2 03/14/18 20:51 90 18 138/74 98 03/14/18 19:14 98 Room Air 03/14/18 19:07 36.8 93 18 142/74 96 Room Air Physical Exam GENERAL: Sitting up in bed with persistent dry cough, no acute distress, nontoxic EYE EXAM: normal conjunctiva. EARS: TMs clear bilaterally. OROPHARYNX: no exudate, no erythema, lips, buccal mucosa, and tongue normal and mucous membranes are moist NECK: supple, no nuchal rigidity, no adenopathy, non-tender LUNGS: Clear to auscultation. Normal chest wall mechanics HEART: no murmurs, S1 normal and S2 normal ABDOMEN: abdomen soft, non-tender, normo-active bowel sounds, no masses, no rebound or guarding. BACK: Back is symmetrical on inspection and there is no deformity, no midline tenderness, no CVA tenderness. SKIN: no rashes and no bruising UPPER EXTREMITIES: upper extremities are grossly normal. LOWER EXTREMITIES: No pitting edema. Calves equal bilaterally. NEURO EXAM: Normal sensorium, cranial nerves II-XII grossly intact, normal speech, no gross weakness of arms, no gross weakness of legs. Medical Decision & Procedures ER Provider Diagnostic Interpretation: Radiology results as stated below per my review and the radiologist's interpretation: CHEST ONE VIEW PORTABLE CLINICAL HISTORY: 62 years-old Male presenting with cough, weakness, bodyaches. TECHNIQUE: Portable upright AP view of the chest was obtained. COMPARISON: 07/16/2016. FINDINGS: Atherosclerosis of the aortic arch. Cardiac silhouette top normal in size. No focal opacity. No large effusion or pneumothorax. Anterior cervical fusion hardware. Degenerative changes of the spine. Chronically widened left acromioclavicular joint. Upper abdomen normal. IMPRESSION: 1. No acute cardiopulmonary disease. Electronically signed by: Mansoor Gibson M.D. 03/14/2018 7:47 PM Dictated Date/Time: 03/14/2018 7:46 PM Laboratory Results 03/14/18 19:18 Red Blood Count 4.49, Mean Corpuscular Volume 89.3, Mean Corpuscular Hemoglobin 31.6, Mean Corpuscular Hemoglobin Concent 35.4, Mean Platelet Volume 10.6, Neutrophils (%) (Auto) 69.5, Lymphocytes (%) (Auto) 13.9, Monocytes (%) (Auto) 9.0, Eosinophils (%) (Auto) 7.3, Basophils (%) (Auto) 0.2, Neutrophils # (Auto) 10.17, Lymphocytes # (Auto) 2.03, Monocytes # (Auto) 1.31, Eosinophils # (Auto) 1.06, Basophils # (Auto) 0.03 03/14/18 19:18 Test 03/14/18 19:15 03/14/18 19:18 Influenza Type A Antigen Neg for Influ A (NEG) Influenza Type B Antigen Neg for Influ B (NEG) White Blood Count 14.62 K/uL (4.8-10.8) Red Blood Count 4.49 M/uL (4.7-6.1) Hemoglobin 14.2 g/dL (14.0-18.0) Hematocrit 40.1 % (42-52) Mean Corpuscular Volume 89.3 fL (80-100) Mean Corpuscular Hemoglobin 31.6 pg (25-34) Mean Corpuscular Hemoglobin Concent 35.4 g/dl (32-36) Platelet Count 263 K/uL (130-400) Mean Platelet Volume 10.6 fL (7.4-10.4) Neutrophils (%) (Auto) 69.5 % Lymphocytes (%) (Auto) 13.9 % Monocytes (%) (Auto) 9.0 % Eosinophils (%) (Auto) 7.3 % Basophils (%) (Auto) 0.2 % Neutrophils # (Auto) 10.17 K/uL (1.4-6.5) Lymphocytes # (Auto) 2.03 K/uL (1.2-3.4) Monocytes # (Auto) 1.31 K/uL (0.11-0.59) Eosinophils # (Auto) 1.06 K/uL (0-0.5) Basophils # (Auto) 0.03 K/uL (0-0.2) RDW Standard Deviation 48.2 fL (36.4-46.3) RDW Coefficient of Variation 14.7 % (11.5-14.5) Immature Granulocyte % (Auto) 0.1 % Immature Granulocyte # (Auto) 0.02 K/uL (0.00-0.02) Anion Gap 6.0 mmol/L (3-11) Est Creatinine Clear Calc Drug Dose 82.8 ml/min Estimated GFR () 96.7 Estimated GFR (Non- 83.5 BUN/Creatinine Ratio 12.4 (10-20) Calcium Level 8.6 mg/dl (8.5-10.1) Total Bilirubin 0.4 mg/dl (0.2-1) Direct Bilirubin mg/dl (0-0.2) Aspartate Amino Transf (AST/SGOT) 24 U/L (15-37) Alanine Aminotransferase (ALT/SGPT) 21 U/L (12-78) Alkaline Phosphatase 59 U/L (45-117) Total Protein 7.6 gm/dl (6.4-8.2) Albumin 3.7 gm/dl (3.4-5.0) Lipase 194 U/L (73-393) Chemistry Specimen Hemolysis Laboratory results per my review. Medications Administered Medications (Trade) Dose Ordered Sig/Lamont Route Start Time Stop Time Status Last Admin Dose Admin Sodium Chloride 2,000 ml @ 999 mls/hr Q2H1M STAT IV 03/14/18 19:17 03/14/18 21:03 DC 03/14/18 19:21 999 MLS/HR Ketorolac Tromethamine (Toradol Inj) 30 mg NOW STAT IV 03/14/18 19:17 03/14/18 19:19 DC 03/14/18 19:28 30 MG Ondansetron HCl (Zofran Inj) 4 mg NOW STAT IV 03/14/18 19:17 03/14/18 19:19 DC 03/14/18 19:28 4 MG Levofloxacin (Levaquin Tab) 750 mg NOW ONCE PO 03/14/18 20:45 03/14/18 20:46 DC 03/14/18 20:46 750 MG ED Course ED COURSE: Vital signs were reviewed and showed normal vitals. The patients medical record was reviewed The above diagnostic studies were performed and reviewed. ED treatments and interventions as stated above. 1912: The patient was evaluated in room C3. A complete history and physical examination was performed. 1916: Zofran Inj 4 mg IV, Toradol Inj 30 mg IV, Sodium Chloride 2000 ml @ 999 mls/hr IV. 2039: Upon reevaluation, the patient is resting comfortably. I discussed my findings with the patient and he understands and agrees with the treatment plan. Based on the patients age, coexisting illnesses, exam and lab findings the decision to treat as an outpatient was made. The patient remained stable while under my care. The patient appeared well at the time of discharge. 2044: Levaquin Tab 750 mg PO. Medical Decision Differential diagnosis: Etiologies such as viral syndrome, otitis, pharyngitis, pneumonia, influenza, meningitis, urinary tract infection, sepsis, bacteremia, as well as others were entertained. Patient is a 62-year-old male that presents to ER for cough which is been present for the past 2.5 weeks associated with yellow sputum, sore throat diffuse muscle aches. Labs show a mild leukocytosis. BMP with mild hypokalemia. LFTs, bilirubin lipase is normal. Influence was negative. Chest x-ray unremarkable. Based on the patient's symptoms with a negative influenza I still feel as though this is most consistent with a viral URI however as he has had a productive cough for the past 2 weeks and felt was reasonable to treat him with Levaquin as a bronchitis. Patient was agreeable with this. He was discharged with Levaquin and Flo Mcfadden to follow with PCP. Discussed with Pt concerning signs and symptoms to watch out for. Pt was instructed to follow up with their PCP and discussed with the patient their option to return to the ED at anytime for persistent or worsening symptoms. The appropriate anticipatory guidance and out-patient management, including indications for return to the emergency department, were explained at length to the patient and understood. Medication Reconcilliation Current Medication List: was personally reviewed by me Blood Pressure Screening Patient's blood pressure: Normal blood pressure Blood pressure disposition: Did not require urgent referral Impression Primary Impression: Bronchitis Scribe Attestation The scribe's documentation has been prepared under my direction and personally reviewed by me in its entirety. I confirm that the note above accurately reflects all work, treatment, procedures, and medical decision making performed by me. Departure Information Dispostion Home / Self-Care Prescriptions Levofloxacin (Levaquin) 750 Mg Tab 750 MG PO QD@08, #9 TAB Prov: Surinder Costa, DO 03/14/18 Benzonatate (TESSALON PERLES) 100 Mg Cap 100 MG PO TID for 10 Days, #30 CAP Prov: Surinder Costa, DO 03/14/18 Forms HOME CARE DOCUMENTATION FORM, IMPORTANT VISIT INFORMATION Patient Instructions Bronchitis Acute, My [facility] Additional Instructions Please follow up with your primary care doctor with in the next 24 hours. Any worsening of your symptoms, please return to the ED immediately. This includes any fevers greater than 100.4, worsening pain, chest pain, shortness breath, persistent nausea, vomiting, unable to eat or drink, or any other concerning signs or symptoms from your standpoint. Please take antibiotics as prescribed. Please take Tessalon Perles as needed for coughing.
== END 2018-03-14 20:53 | disposition home or self-care (01) ==
LOC: C.EDB 19:01 → C.EDC 20:53
DX: J40 Bronchitis, not specified as acute or chronic (principal); E87.6 Hypokalemia; J44.9 Chronic obstructive pulmonary disease, unspecified; K57.90 Diverticulosis of intestine, part unspecified, without perforation or abscess without bleeding; K21.9 Gastro-esophageal reflux disease without esophagitis; E78.5 Hyperlipidemia, unspecified; G89.29 Other chronic pain; M54.9 Dorsalgia, unspecified; M51.37 Other intervertebral disc degeneration, lumbosacral region; N40.1 Benign prostatic hyperplasia with lower urinary tract symptoms; Z87.891 Personal history of nicotine dependence; Z88.6 Allergy status to analgesic agent

== ENCOUNTER 2023-02-21 07:24 | Observation (INO) ==
[2023-02-21] MEDS ORDERED: dexAMETHasone**PF** 10 MG/ML VIAL IV ONE (07:32)
[2023-02-21] MEDS ORDERED: LORazepam 2 MG/1 ML VIAL IV STA (07:32)
[2023-02-21] MEDS ORDERED: SODIUM CHLORIDE 0.9% 1000ML 1,000 ML IV ONE (07:32)
[2023-02-21 07:55] LABS: Basophils # (auto) 0.04 K/uL (0-0.2); Basophils % (auto) 0.5 %; Eosinophils # (auto) 0.06 K/uL (0-0.50); Eosinophils % (auto) 0.8 %; Hematocrit (blood only) 45.9 % (42.0-52.0); Hemoglobin 15.8 g/dl (14.0-18.0); Immature Granulocytes # (auto) 0.03 K/uL (0.01-0.20); Immature Granulocytes % (auto) 0.4 %; Lymphocytes % (auto) 31.4 %; Mean Corpuscular Hemoglobin 29.6 pg (25.0-34.0); Mean Corpuscular Hgb Conc 34.4 g/dL (32.0-36.0); Monocytes # (auto) 0.58 K/uL (0.11-0.59); Monocytes % (auto) 7.9 %; Neutrophils # (auto) 4.32 K/uL (1.40-6.50); Platelet Count 261 K/uL (130-400); RDW Coefficient of Variation 13.3 % (11.5-14.5); RDW Standard Deviation 41.7 fL (36.4-46.3); Red Blood Count 5.34 M/uL (4.70-6.10); White Blood Count 7.33 K/ul (4.8-10.8)
--- NOTE | 2023-02-21 07:55 | Emergency Department Note ---
Impression & Plan COVID-19, Acute dehydration, Intractable nausea and vomiting ED Provider Note Name: NAYELI CORRALES Sr Age: 67 Sex: M Arrives Via: Ambulance Informant: Patient ED Provider: Pito Ramos MD Chief Complaint: Illness Impression: As per impressions above Medical Decision Makin-year-old gentleman arrives for evaluation of illness. Patient was diagnosed with COVID about 7 days ago. He notes shortness of breath and cough and feeling generally weak however he has now developed severe nausea vomiting and diarrhea. He is quite dehydrated to the point where it is difficult even sitting up. Is given some of IV fluids and antiemetics. He continues to have nausea. He was given some steroids given his COPD history and as well as a nebulizer. I do not see clear indication for antibiotics. He is not significantly hypoxic. He does not have evidence of PE dissection so think CT imaging of the chest is not indicated. His abdominal pain is mild and diffuse and has no peritonitis imaging is not indicated at this time. He does have essentially intractable nausea vomiting diarrhea. He is too weak and tired to go home. Discussed with hospitalist for further management. I do not feel patient is septic at this time. Prior Medical Record and Triage/Nursing Notes reviewed by Me External chart review by me Differentials:COVID, gastroenteritis, dehydration, obstruction, PE, liver failure, pancreatitis, many other pathologies considered Vital Signs: reviewed and remarkable for no significant abnormalities Interventions: Normal saline bolus, Zofran 4 mg IV, Ativan 1 mg IV, Decadron 10 mg IV, DuoNeb Labs:Reviewed and remarkable for no significant abnormalities Imagin view chest x-ray as per my interpretation no evidence of infiltrate EKG:As per my interpretation. Indication weakness. Normal sinus rhythm at 60 bpm QTc of 442. There is no ectopy nor ischemia. When compared to an EKG of May 27, 2020 there is no significant change other than possible lead placement. Cardiac/Tele Monitoring: Cardiac Monitoring: An Order was placed for continuous cardiac monitoring. The monitor shows a rate of [] with a [normal sinus] rhythm. Consults:Dr Kelsie JONES Hospitalist Plan: Disposition:Hospitalization. Condition: Good History of Present Illness:67-year-old gentleman arrives for evaluation of illness. Patient was diagnosed with COVID on February 15 and has been sick for the last week. He states he initially had some shortness of breath cough and fevers which has progressed to body aches, chills, nausea, vomiting, diarrhea. Worsening weakness. Today started getting muscle spasms. He states he feels too weak to even stand. EMS arrived and found his sats to be 90 to 92% but she improved on nasal cannula O2. He was given 4 mg IV Zofran with vast improvement in his nausea. Patient states that he is having shaking of his body and feeling very weak. He feels very anxious. Does note some diffuse vague abdominal pain which did not start until he started vomiting. Patient states that after vomiting he noted some mild right chest discomfort. Past History:See Below Home Medications:See Below Allergies:See Below Vitals:Blood Pressure: 163/92, Pulse 66, RR 24, T 36.8C, O2 92% on RA Physical Exam: GENERAL: Patient is tired/unwell/dehydrated appearing and in moderate distress. EYES: No scleral icterus, unremarkable pupils. ENT: Mucous membranes dry, no nasal congestion. NECK: No masses appreciated, nomeningismus, trachea is midline. RESPIRATORY: Moderately tachypneic with mild diffuse wheezing. CARDIOVASCULAR: Regular rate and rhythm.No murmurs, rubs, gallops appreciated. GASTROINTESTINAL: Abdomen soft, non-tender, no peritonitis.Bowel sounds positive.No masses appreciated. BACK: No midline tenderness, no CVA tenderness EXTREMITIES: Normal motion all extremities, no cyanosis, no edema. NEUROLOGIC: Alert and oriented, no acute motor or sensory deficits, no focal weakness, cranial nerves grossly intact. SKIN: No rash, no jaundice, no diaphoresis. PSYCH: Severely anxious, tremulous GCS: 15 ED Course: Times/Reassessments: Patient does appear much better but continues to be nauseous and unable to tolerate p.o. Pito Ramos MD Past Med/Surg History Medical History Anxiety Asthma well controlled w/ inhaler BPH w urinary obs/LUTS Chronic back pain Chronic obstructive pulmonary disease GERD (gastroesophageal reflux disease) Hiatal hernia History of dysphagia HX EGD WITH DILITATION Hx of rheumatic fever Hyperlipidemia Lumbosacral facet joint syndrome Marijuana use occasional Osteoarthritis Slow to wake up after anesthesia very delayed response--was in recovery room for a long while after last endoscopy procedure Surgical History History of breast surgery right breast fatty tissue removed History of colonoscopy History of esophagogastroduodenoscopy (EGD) History of fusion of cervical spine normal ROM History of repair of left rotator cuff x2 History of tooth extraction Hx of vasectomy Family History Father Family history of diabetes mellitus Mother Family history of reaction to anesthesia slow to wake up Breast cancer Denies family history of Ovarian cancer Prostate cancer Coronary heart disease Colorectal cancer Social History Smoking Status: Former smoker Tobacco Type: Smokeless Tobacco (Dip or Chew) Age Started Using Tobacco: 17; Age Quit Using Tobacco: 32; Second Hand Exposure: Yes (parents smoked); Hx Alcohol Use: Yes Alcohol type: hard liquor Alcohol Intake Frequency: 2-4 x/Month Hx Substance Use: Yes (less than once a week smokes marijuana- advised) Pres cribed Medications: Marijuana Last Used Substance: Unknown Preferred Language: Telugu Communication Ability: Effective Visual Impairment: No Limitations Hearing Ability: Normal Calender Supervisor Required: No Beliefs That Will Affect Care: None Current Living Situation: Significant Other current occupational status: retired current occupation: [employer] Feels Safe at Home: Yes Childhood Exposure to Second-Hand Smoke: Yes caffeine: Yes during the past year weight has: remained stable Dental Care, Regularly: Yes Physical Activity Frequency: Does not Exercise Seatbelt Use: always Sunscreen Use: No Assistive Devices: Denture - Upper and Denture - Lower Allergies Allergies Allergy/AdvReac Type Severity Reaction Status Date / Time codeine Allergy Intermediate PASSES OUT Verified 02/21/23 08:31 hydrocodone Allergy Intermediate NAUSEA AND Verified 02/21/23 08:31 VOMITING propoxyphene Allergy Intermediate PASS OUT Verified 02/21/23 08:31 duloxetine [From Cymbalta] Allergy Mild stomach Verified 02/21/23 08:31 cramps Home Meds Home Medications Medication Instructions Recorded Confirmed gabapentin 300 mg capsule 300 mg PO BID 02/21/23 02/21/23 Previous Rx's Medication Instructions Recorded albuterol sulfate 90 mcg/actuation 2 puff inhalation Q4H PRN 09/19/21 aerosol inhaler Shortness Of Breath #8.5 grams esomeprazole magnesium 40 mg 40 mg PO BID #60 caps 04/22/22 capsule,delayed release (Nexium) famotidine 40 mg tablet 40 mg PO BID #180 tabs 04/22/22 rosuvastatin 20 mg tablet 20 mg PO QAM #90 tabs 04/22/22 fluticasone furoate 100 1 inh inhalation DAILY PRN 08/06/22 mcg-vilanterol 25 mcg/dose Shortness Of Breath #28 ea inhalation powder (Breo Ellipta) fluticasone propionate 50 2 spray intranasal QAM PRN 08/13/22 mcg/actuation nasal Congestion #18.2 mL spray,suspension (Flonase Allergy Relief) celecoxib 200 mg capsule 200 mg PO BID PRN pain #60 caps 10/01/22 tamsulosin 0.4 mg capsule (Flomax) 0.4 mg PO DAILY #90 caps 11/12/22 Results & Data (ED) Vital Signs Vital Signs - 24 hr 02/21/23 07:34 02/21/23 07:37 02/21/23 07:37 Temperature 36.8 C Temperature Source Oral Pulse Rate 67 66 Pulse Rate [Apical] Pulse Rate from SpO2 Sensor Respiratory Rate 20 Respiratory Effort / Characteristics Non-Labored Spontaneous Non-Labored Spontaneous Respiratory Depth Normal Normal Respiratory Pattern Regular Blood Pressure 163/92 H Blood Pressure [Right Arm] Blood Pressure Mean 115 Blood Pressure Mean [Right Arm] Pulse Oximetry 92 Oxygen Delivery Method Room Air Sepsis Recent Fever Within 48 Hours No Sepsis New/Unexplained Change in Mental Status No Sepsis Action Taken by Nursing No Action Required 02/21/23 07:37 02/21/23 07:42 02/21/23 07:33 Temperature Temperature Source Pulse Rate 65 Pulse Rate [Apical] 66 Pulse Rate from SpO2 Sensor 66 Respiratory Rate 24 24 Respiratory Effort / Characteristics Spontaneous Labored Respiratory Depth Normal Respiratory Pattern Blood Pressure Blood Pressure [Right Arm] 163/92 H Blood Pressure Mean Blood Pressure Mean [Right Arm] 115 Pulse Oximetry 92 92 99 Oxygen Delivery Method Room Air Room Air Sepsis Recent Fever Within 48 Hours Sepsis New/Unexplained Change in Mental Status Sepsis Action Taken by Nursing 02/21/23 08:00 02/21/23 08:00 02/21/23 08:30 Temperature Temperature Source Pulse Rate 71 Pulse Rate [Apical] Pulse Rate from SpO2 Sensor 70 Respiratory Rate 22 Respiratory Effort / Characteristics Respiratory Depth Respiratory Pattern Blood Pressure 185/64 H 146/86 H Blood Pressure [Right Arm] Blood Pressure Mean 104 106 Blood Pressure Mean [Right Arm] Pulse Oximetry 95 Oxygen Delivery Method Sepsis Recent Fever Within 48 Hours Sepsis New/Unexplained Change in Mental Status Sepsis Action Taken by Nursing 02/21/23 08:30 02/21/23 09:00 02/21/23 09:00 Temperature Temperature Source Pulse Rate 68 64 Pulse Rate [Apical] Pulse Rate from SpO2 Sensor 67 65 Respiratory Rate 22 12 Respiratory Effort / Characteristics Respiratory Depth Respiratory Pattern Blood Pressure 132/81 Blood Pressure [Right Arm] Blood Pressure Mean 98 Blood Pressure Mean [Right Arm] Pulse Oximetry 96 98 Oxygen Delivery Method Sepsis Recent Fever Within 48 Hours Sepsis New/Unexplained Change in Mental Status Sepsis Action Taken by Nursing 02/21/23 09:30 02/21/23 09:30 02/21/23 10:00 Temperature Temperature Source Pulse Rate 78 Pulse Rate [Apical] Pulse Rate from SpO2 Sensor 76 Respiratory Rate 20 Respiratory Effort / Characteristics Respiratory Depth Respiratory Pattern Blood Pressure 143/72 H 141/83 H Blood Pressure [Right Arm] Blood Pressure Mean 95 102 Blood Pressure Mean [Right Arm] Pulse Oximetry 95 Oxygen Delivery Method Sepsis Recent Fever Within 48 Hours Sepsis New/Unexplained Change in Mental Status Sepsis Action Taken by Nursing 02/21/23 10:00 Temperature Temperature Source Pulse Rate 65 Pulse Rate [Apical] Pulse Rate from SpO2 Sensor 62 Respiratory Rate 19 Respiratory Effort / Characteristics Respiratory Depth Respiratory Pattern Blood Pressure Blood Pressure [Right Arm] Blood Pressure Mean Blood Pressure Mean [Right Arm] Pulse Oximetry 96 Oxygen Delivery Method Sepsis Recent Fever Within 48 Hours Sepsis New/Unexplained Change in Mental Status Sepsis Action Taken by Nursing Laboratory Data 02/21/23 07:34 02/21/23 07:34 Lab Results 02/21/23 02/21/23 02/21/23 Range/Units 07:34 07:34 07:34 WBC 7.33 (4.8-10.8) K/ul RBC 5.34 (4.70-6.10) M/uL Hgb 15.8 (14.0-18.0) g/dl Hct 45.9 (42.0-52.0) % MCV 86.0 (80.0-100.0) fL MCH 29.6 (25.0-34.0) pg MCHC 34.4 (32.0-36.0) g/dL RDW Std Deviation 41.7 (36.4-46.3) fL RDW Coeff of Khang 13.3 (11.5-14.5) % Plt Count 261 (130-400) K/uL MPV 10.0 (9.4-12.4) fL Immature Gran % (Auto) 0.4 % Neut % (Auto) 59.0 % Lymph % (Auto) 31.4 % [place] % (Auto) 7.9 % Eos % (Auto) 0.8 % Baso % (Auto) 0.5 % Neut # (Auto) 4.32 (1.40-6.50) K/uL Lymph # (Auto) 2.30 (1.2-3.4) K/uL [place] # (Auto) 0.58 (0.11-0.59) K/uL Eos # (Auto) 0.06 (0-0.50) K/uL Baso # (Auto) 0.04 (0-0.2) K/uL Immature Gran # (Auto) 0.03 (0.01-0.20) K/uL Sodium 138 (136-145) mmol/L Potassium 3.7 (3.5-5.1) mmol/L Chloride 105 (98-107) mmol/L Carbon Dioxide 20 L (21-32) mmol/L Anion Gap 13 H (3-11) BUN 18 (6-23) mg/dl Creatinine 1.03 (0.6-1.4) mg/dl Est Cr Clr Drug Dosing 66.8 ml/min Est GFR ( Amer) 87.9 ml/min Est GFR (Non-Af Amer) 75.9 ml/min BUN/Creatinine Ratio 17.5 (10-20) Glucose 131 H (70-99(Fasting)) mg/dl Calcium 9.0 (8.6-10.3) mg/dl Magnesium 1.9 (1.7-2.4) mg/dl Total Bilirubin 1.0 (0.2-1.0) mg/dl Direct Bilirubin 0.1 (0-0.2) mg/dl AST 27 (13-39) U/L ALT 19 (7-52) U/L Alkaline Phosphatase 46 (34-104) U/L Troponin I High Sens 6.5 (0-20) pg/ml Total Protein 7.5 (6.0-8.3) gm/dl Albumin 4.2 (3.4-5.0) gm/dl Lipase 16 (11-82) U/L Procalcitonin < 0.05 (0-0.5) ng/ml SARS-CoV-2 (PCR) (Negative) Influenza Type A (PCR) (Neg) Influenza Type B (PCR) (Neg) RSV (RT-PCR) (Neg) 02/21/23 Range/Units 07:34 WBC (4.8-10.8) K/ul RBC (4.70-6.10) M/uL Hgb (14.0-18.0) g/dl Hct (42.0-52.0) % MCV (80.0-100.0) fL MCH (25.0-34.0) pg MCHC (32.0-36.0) g/dL RDW Std Deviation (36.4-46.3) fL RDW Coeff of Khang (11.5-14.5) % Plt Count (130-400) K/uL MPV (9.4-12.4) fL Immature Gran % (Auto) % Neut % (Auto) % Lymph % (Auto) % [place] % (Auto) % Eos % (Auto) % Baso % (Auto) % Neut # (Auto) (1.40-6.50) K/uL Lymph # (Auto) (1.2-3.4) K/uL [place] # (Auto) (0.11-0.59) K/uL Eos # (Auto) (0-0.50) K/uL Baso # (Auto) (0-0.2) K/uL Immature Gran # (Auto) (0.01-0.20) K/uL Sodium (136-145) mmol/L Potassium (3.5-5.1) mmol/L Chloride (98-107) mmol/L Carbon Dioxide (21-32) mmol/L Anion Gap (3-11) BUN (6-23) mg/dl Creatinine (0.6-1.4) mg/dl Est Cr Clr Drug Dosing ml/min Est GFR ( Amer) ml/min Est GFR (Non-Af Amer) ml/min BUN/Creatinine Ratio (10-20) Glucose (70-99(Fasting)) mg/dl Calcium (8.6-10.3) mg/dl Magnesium (1.7-2.4) mg/dl Total Bilirubin (0.2-1.0) mg/dl Direct Bilirubin (0-0.2) mg/dl AST (13-39) U/L ALT (7-52) U/L Alkaline Phosphatase (34-104) U/L Troponin I High Sens (0-20) pg/ml Total Protein (6.0-8.3) gm/dl Albumin (3.4-5.0) gm/dl Lipase (11-82) U/L Procalcitonin (0-0.5) ng/ml SARS-CoV-2 (PCR) POSITIVE A* (Negative) Influenza Type A (PCR) Negative (Neg) Influenza Type B (PCR) Negative (Neg) RSV (RT-PCR) Negative (Neg) Administered Medications Pantoprazole Sodium 40 mg/ (Syringe) 10 mls @ 5 mls/min IV DAILY@1100 [facility] Stop: 03/23/23 11:59 Last Admin: 02/21/23 13:21 Dose: 5 mls/min Documented By: KIRSTIN Discontinued Medications Al Hydrox/Mg Hydrox/Simethicone (Gi Cocktail Ed Use) Confirm Administered Dose 1 dose PO .STK-MED ONE Stop: 02/21/23 13:15 Last Admin: 02/21/23 13:21 Dose: Not Given Documented By: KIRSTIN Al Hydrox/Mg Hydrox/Simethicone 18 ml/ Lidocaine HCl 6 ml/ BARCODE IDENTIFIER 1 each 0 ml PO ONE ONE Stop: 02/21/23 10:46 Last Admin: 02/21/23 13:28 Dose: 20 ml Documented By: KIRSTIN Dexamethasone Sodium Phosphate (DexamethasonePf 10 Mg/Ml Vial) 10 mg IV NOW ONE Stop: 02/21/23 07:33 Last Admin: 02/21/23 07:40 Dose: 10 mg Documented By: JULIANNE Sodium Chloride (Nss 1000ml) 1,000 mls @ 999 mls/hr IV .Q1H1M ONE Stop: 02/21/23 08:32 Last Infusion: 02/21/23 09:02 Dose: 0 mls/hr Documented By: Admin: 02/21/23 07:35 Dose: 999 mls/hr Documented By: AYDEE Famotidine 20 mg/ Syringe 5 mls @ 2.5 mls/min IV DAILY DEBBY Stop: 03/23/23 10:29 Last Admin: 02/21/23 13:20 Dose: 2.5 mls/min Documented By: KIRSTIN Prochlorperazine 5 mg/ Syringe 5 mls @ 5 mls/min IV ONE ONE Stop: 02/21/23 10:46 Last Admin: 02/21/23 13:20 Dose: 5 mls/min Documented By: KIRSTIN Lorazepam (Lorazepam 2 Mg/1 Ml Vial) 1 mg IV NOW STA Stop: 02/21/23 07:33 Last Admin: 02/21/23 07:40 Dose: 1 mg Documented By: JULIANNE Ondansetron HCl (Ondansetron Inj 2 Mg/Ml 2 Ml Vial) 4 mg IV NOW STA Stop: 02/21/23 08:57 Last Admin: 02/21/23 09:06 Dose: 4 mg Documented By: AYDEE Imaging Data Radiologist's Impression: Chest X-Ray 02/21/23 07:33 SINGLE VIEW CHEST CLINICAL HISTORY: Covid. FINDINGS: An AP, portable, upright chest radiograph is compared to study dated 05/27/2020. The cardiomediastinal silhouette is top normal for projection noting atherosclerotic calcification of the thoracic aorta. The lungs and pleural spaces are clear noting bibasilar scarring/atelectasis. No pneumothorax is seen. The skeletal structures are osteopenic. The bony thorax is grossly intact. Fu bryant hardware is noted in the lower cervical spine. IMPRESSION: No acute cardiopulmonary abnormality. ACT 112: Negative or not required by law. Electronically signed by: Vazquez Smith M.D. 02/21/2023 9:02 AM Discharge Plan Visit Data Chief Complaint: Shortness of Breath/Dyspnea Stated Complaint: SOB, N/V/D, COVID + SINCE 02/15 ED Provider: Pito Ramos Discharge Problem: COVID-19, Acute dehydration, Intractable nausea and vomiting Discharge Instructions Interventions: ED Discharge Assessment Last Done: 02/21/23 14:00
[2023-02-21 08:14] LABS: Albumin Level 4.2 gm/dl (3.4-5.0); BUN Creatinine Ratio 17.5 (10-20); Bilirubin Direct 0.1 mg/dl (0-0.2); Creatinine Clr Calc Pharmacy 66.8 ml/min; Est GFR (African American) 87.9 ml/min; Est GFR (Non-African American) 75.9 ml/min; Magnesium 1.9 mg/dl (1.7-2.4); Potassium 3.7 mmol/L (3.5-5.1); Total Protein 7.5 gm/dl (6.0-8.3)
[2023-02-21 08:20] LABS: Troponin I High Sensitivity 6.5 pg/ml (0-20)
[2023-02-21] MEDS ORDERED: ONDANSETRON INJ 2 MG/ML 2 ML VIAL IV STA (08:56)
--- NOTE | 2023-02-21 09:03 | XRay Report ---
SINGLE VIEW CHEST CLINICAL HISTORY: Covid. FINDINGS: An AP, portable, upright chest radiograph is compared to study dated 05/27/2020. The cardiom ediastinal silhouette is top normal for projection noting atherosclerotic calcification of the thorac ic aorta. The lungs and pleural spaces are clear noting bibasilar scarring/atelectasis. No pneumothor ax is seen. The skeletal structures are osteopenic. The bony thorax is grossly intact. Fusion hardwar e is noted in the lower cervical spine. IMPRESSION: No acute cardiopulmonary abnormality. ACT 112: Negative or not required by law. Electronically signed by: Vazquez Smith M.D. 02/21/2023 9:02 AM
[2023-02-21 09:06] LABS: Influenza A virus by PCR Negative (Neg); Influenza B virus by PCR Negative (Neg); RSV by PCR Negative (Neg)
[2023-02-21 09:14] LABS: SARS CoV2 RNA(COVID-19) Ceph POSITIVE (Negative)
--- NOTE | 2023-02-21 10:29 | History & Physical Report ---
Date of Service February 21, 2023 Assessment & Plan (1) Nausea & vomiting: Plan: -Admit to med/surge -The patient is currently afebrile, hemodynamically stable, and stable on RA -His intractable upper abd pain, nausea, vomiting are likely due to his acute covid infection, poor oral intake, and gastritis -He has continued to use his BID Celebrex for chronic back pain -He was recently seen by ophthalmology due to his right sided vision changes over the past year, they ordered an outpatient MRI of the brain to evaluate for possible lesions in the occipital lobe -At this time we will treat his nausea vomiting, and abdominal pain for acute gastritis, if no improvement would recommend CT of the head for further evaluation -Was given 1 mg IV ativan, 4 mg IV zofran, 1L NSS, and 10 mg IV dexamethasone in the ED -Hold all systemic steroids at this time as he is stable on RA and these will exacerbate his gastritis -Will give 20 mg IV famotidine now and continue with BID dosing, will start 40 mg IV pantoprazole daily, will give a GIU cocktail on admission, and try compazine to see if it is more effective in controlling his nausea -Will give 2 bags of LR at 100 mL/hr for his dehydration -Clear liquid diet for now, advance as able -BL SCD's and Sub-Q lovenox for DVT PPX -AM CBC, BMP (2) Diarrhea: Plan: -Multiple episodes of non-bloody diarrhea over the past 4-5 days -No recent abx use -Likely due to his current Covid 19 infection -Will obtain stool studies including C. diff screening (3) Vision changes: Plan: -Has been having right-sided vision changes over the past year -Recently evaluated by Ophthalmology who ordered an outpatient MRI of the brain for evaluation of possible occipital lobe lesions, yet to be obtain -If his nausea and vomiting are not resolved with adequate gastritis treatment would obtain a CT of the brain for further evaluation of [employer] causes of his symptoms (4) COVID-19: Plan: -Tested positive one week ago, still positive on PCR testing today -Stable on RA -Supportive treatment for now with incentive spirometry, continue home breathing treatments -Monitor SPO2 and keep between 88-92% with his hx of COPD (5) Lumbosacral radiculopathy due to degenerative joint disease of spine: Plan: -Continue Gabapentin -Hold Celebrex until gastritis symptoms have resolved -PO tylenol q6h prn pain (1,2,3), headache, fever (6) Hypercholesterolemia: Plan: -Continue statin (7) Atrial tachycardia, paroxysmal: Plan: -Currently rate controlled -Conitnue to monitor (8) COPD (chronic obstructive pulmonary disease): Plan: -See covid 19 (9) BPH w urinary obs/LUTS: Plan: -Continue Flomax Plan The patient was discussed with Dr. Iglesias at the time of the admission History of Present Illness Chief Complaint: Generalized weakness, intractable nausea and vomiting Primary Care Provider: Ramon Echavarria MD Nitin is a 67 year old male with a PMH significant for COPD, hyperlipidemia, paroxysmal atrial tachycardia, GERD, and BPH who presented to the [facility] ED on 02/21/23 with a chief complaint of generalized weakness and intractable nausea/vomiting. Per the ED staff, the patient test positive for covid 19 approximately one week ago. He has had progressive generalized weakness and has been having frequent nausea and vomiting In the ED the patient was found to be afebrile, hemodynamically stable, and stable on RA. Labs were remarkable for a CBC WNL, cr of 1.03 (baseline appears to be 0.90), glucose of 131, stable electrolytes, AG of 13 with Bicarb of 20, LFT's WNL, high sen trop of 6.5, lipase of 16 with procal < 0.05, covid 19 positive but influenza and RSV negative. Chest xray was read as "No acute cardiopulmonary abnormality.". The patient was initially given 4 gm IV zofran, 1 mg IV ativan, 10 mg IV dexamethasone, and 1L NSS but he was unable to tolerate PO intake. We were asked to admit for observation due to his intractable nausea and vomiting. At the time of the exam the patient was lying in bed in no acute distress with his daughter sitting bedside, history was obtained from both. He states that he tested positive for Covid 19 on 02/14 on a home test. Since then he has been experiencing intractable non-blood nausea and vomiting multiple times a day. He has been unable to keep food or water down over the past 2-3 days. He has also been experiencing 3-5 episodes of non-bloody diarrhea daily, he denies recent antibiotic use. He has been having upper abdominal pain which is exacerbated with vomiting, he denies radiation of the pain. He states that he has chronic back pain for which he takes BID Celecoxib and Gabapentin. When asked, he states that he will also take additional Advil/Motrin for pain. His daughter corrected him saying that he takes tylenol for pain as well, no additional NSAIDs. He states that he has severe refulx at baseline and feels as though it has been getting worse over the past week. He denies recent fevers, chills, chest pain, SOB from baseline, dysuria, hematuria, melena, bloody BM's, LE swelling and recent trauma. The patient notes that he has been having headaches and visual field changes in his right eye for the past year. He states that he was recently seen by an Docket Specialist for this issue and needs an MRI of his brain. Per chart review, the patient was seen by Dr. Lizzie Mccoy of [facility] on 02/09. Per her note from 02/09, there is concern for homonymous visual field deficit possibly caused by an occipital lobe lesion. Dr. Mccoy ordered an outpatient MRI of the brain which has not yet been obtained. We discussed code status, the patient tis a Full Code and wishes for his children to make medical decisions for him if he cannot make them himself. Please refer to Dr. Iglesias's Attestation for any changes to the treatment plan Allergies Allergy/AdvReac Type Severity Reaction Status Date / Time codeine Allergy Intermediate PASSES OUT Verified 02/21/23 08:31 hydrocodone Allergy Intermediate NAUSEA AND Verified 02/21/23 08:31 VOMITING propoxyphene Allergy Intermediate PASS OUT Verified 02/21/23 08:31 duloxetine [From Cymbalta] Allergy Mild stomach Verified 02/21/23 08:31 cramps Home Medications Medication Instructions Recorded Confirmed Type albuterol sulfate 90 mcg/actuation 2 puff inhalation Q4H PRN 09/19/21 02/21/23 Rx aerosol inhaler Shortness Of Breath #8.5 grams esomeprazole magnesium 40 mg 40 mg PO BID #60 caps 04/22/22 02/21/23 Rx capsule,delayed release (Nexium) famotidine 40 mg tablet 40 mg PO BID #180 tabs 04/22/22 02/21/23 Rx rosuvastatin 20 mg tablet 20 mg PO QAM #90 tabs 04/22/22 02/21/23 Rx fluticasone furoate 100 1 inh inhalation DAILY PRN 08/06/22 02/21/23 Rx mcg-vilanterol 25 mcg/dose Shortness Of Breath #28 ea inhalation powder (Breo Ellipta) fluticasone propionate 50 2 spray intranasal QAM PRN 08/13/22 02/21/23 Rx mcg/actuation nasal Congestion #18.2 mL spray,suspension (Flonase Allergy Relief) celecoxib 200 mg capsule 200 mg PO BID PRN pain #60 caps 10/01/22 02/21/23 Rx tamsulosin 0.4 mg capsule (Flomax) 0.4 mg PO DAILY #90 caps 11/12/22 02/21/23 Rx gabapentin 300 mg capsule 300 mg PO BID 02/21/23 02/21/23 History Past Med/Surg History Medical History Anxiety Asthma well controlled w/ inhaler BPH w urinary obs/LUTS Chronic back pain Chronic obstructive pulmonary disease GERD (gastroesophageal reflux disease) Hiatal hernia History of dysphagia HX EGD WITH DILITATION Hx of rheumatic fever Hyperlipidemia Lumbosacral facet joint syndrome Marijuana use occasional Osteoarthritis Slow to wake up after anesthesia very delayed response--was in recovery room for a long while after last endoscopy procedure Surgical History History of breast surgery right breast fatty tissue removed History of colonoscopy History of esophagogastroduodenoscopy (EGD) History of fusion of cervical spine normal ROM History of repair of left rotator cuff x2 History of tooth extraction Hx of vasectomy Family History Father Family history of diabetes mellitus Mother Family history of reaction to anesthesia slow to wake up Breast cancer Denies family history of Ovarian cancer Prostate cancer Coronary heart disease Colorectal cancer Social History Smoking Status: Former smoker Tobacco Type: Smokeless Tobacco (Dip or Chew) Age Started Using Tobacco: 17; Age Quit Using Tobacco: 32; Second Hand Exposure: Yes (parents smoked); Hx Alcohol Use: Yes Alcohol type: hard liquor Alcohol Intake Frequency: 2-4 x/Month Hx Substance Use: Yes (less than once a week smokes marijuana- advised) Prescribed Medications: Marijuana Last Used Substance: Unknown Preferred Language: Chinese Communication Ability: Effective Visual Impairment: No Limitations Hearing Ability: Normal Deliverer Outside Required: No Beliefs That Will Affect Care: None Current Living Situation: Significant Other current occupational status: retired current occupation: [employer] Feels Safe at Home: Yes Childhood Exposure to Second-Hand Smoke: Yes caffeine: Yes during the past year weight has: remained stable Dental Care, Regularly: Yes Physical Activity Frequency: Does not Exercise Seatbelt Use: always Sunscreen Use: No Assistive Devices: Denture - Upper and Denture - Lower Review of Systems Review of Systems: Denies current fever, chills, chest pain, SOB, cough, hematemesis, melena, dysuria, hematuria, and recent trauma. All systems have been reviewed and are otherwise negative. Physical Exam Physical Exam: Physical Exam: General: In no acute distress, stated age, well-nourished, good hygiene HEENT: Normocephalic, atraumatic, no scleral icterus, pupils around round, symmetrical, and reactive to light, dry mucus membranes, trachea midline, no thyromegaly Chest/Pulm: No respiratory distress, symmetrical chest expansion, clear breath sounds throughout Cardiac: RRR, no murmurs noted Abdomen: Negative for ascites and bruising, normoactive bowel sounds, soft, mildly tender to palpation in the epigastric region and RUQ, no lower abdominal tenderness or rebound tenderness Musculoskeletal: Symmetrical and without signs of acute trauma, upper and lower extremities with full ROM, no atrophy, spasticity, or flaccidity Extremities: Radial, dorsalis pedis, and posterior tibial pulses are intact and symmetrical, no edema noted in the BL LE's Skin: Warm, dry, no rashes , lesions, or scars noted Neuro: Alert and oriented to person, place, month, year, and president, no focal defects, CN II-XII tested with decreased vision in the lateral right visual field in the right eye, finger to nose test negative, no tremors noted Psych: No acute distress, calm and cooperative during the exam Results & Data Results & Data Vital Signs (Past 12 Hours) Vital Signs Temp Pulse Pulse Resp BP BP Pulse Ox 02/21/23 09:00 64 12 98 02/21/23 09:00 132/81 03/25/23 08:30 68 22 96 02/21/23 08:30 146/86 H 02/21/23 08:00 71 22 95 02/21/23 08:00 185/64 H 02/21/23 07:33 65 24 99 02/21/23 07:42 66 24 163/92 H 92 02/21/23 07:37 92 02/21/23 07:37 36.8 C 66 20 163/92 H 92 02/21/23 07:34 67 O2 Del Method 02/21/23 09:00 02/21/23 09:00 02/21/23 08:30 02/21/23 08:30 02/21/23 08:00 02/21/23 08:00 02/21/23 07:33 02/21/23 07:42 Room Air 02/21/23 07:37 Room Air 02/21/23 07:37 Room Air 02/21/23 07:34 Laboratory Results Abnormal lab results 02/21/23 02/21/23 Range/Units 07:34 07:34 Carbon Dioxide 20 L (21-32) mmol/L Anion Gap 13 H (3-11) Glucose 131 H (70-99(Fasting)) mg/dl SARS-CoV-2 (PCR) POSITIVE A* (Negative) Diagnostic Findings Chest X-Ray 02/21/23 07:33 SINGLE VIEW CHEST CLINICAL HISTORY: Covid. FINDINGS: An AP, portable, upright chest radiograph is compared to study dated 05/27/2020. The cardiomediastinal silhouette is top normal for projection noting atherosclerotic calcification of the thoracic aorta. The lungs and pleural spaces are clear noting bibasilar scarring/atelectasis. No pneumothorax is seen. The skeletal structures are osteopenic. The bony thorax is grossly intact. Fusion hardware is noted in the lower cervical spine. IMPRESSION: No acute cardiopulmonary abnormality. ACT 112: Negative or not required by law. Electronically signed by: Vazquez Smith M.D. 02/21/2023 9:02 AM ECG Additional Comments: Normal sinus rhythm Minimal voltage criteria for LVH, may be normal variant Borderline ECG When compared with ECG of 27-MAY-2020 13:10, Questionable change in QRS axis Nonspecific T wave abnormality no longer evident in Inferior leads Code Status & VTE Plan Code Status Full code VTE Prophylaxis Plan VTE Prophylaxis will be ordered: Yes PG Care Time/CCT Total # of Minutes Spent Total Time Spent with Patient: Total time spent is greater than 50% in coordination of care (as documented) at patient's floor/unit and/or counseling patient: C[place] [address] INT INP/OBS CARE 2/55MIN Patient Type Established History Comprehensive Exam Comprehensive Medical Decision Making Moderate Complexity Diagnoses Nausea & vomiting R11.2 Diarrhea R19.7 Vision changes H53.9 COVID-19 U07.1 Lumbosacral radiculopathy due to degenerative joint disease of spine M47.27 Hypercholesterolemia E78.00 Atrial tachycardia, paroxysmal I47.1 COPD (chronic obstructive pulmonary disease) J44.9 BPH w urinary obs/LUTS N40.1; N13.8
[2023-02-21] MEDS ORDERED: FAMOTIDINE 20 MG in SYRINGE 3 ML IV SCH (10:30)
[2023-02-21] MEDS ORDERED: PROCHLORPERAZINE 5 MG in SYRINGE 4 ML IV ONE (10:45)
[2023-02-21] MEDS ORDERED: ALUMINUM/MAGNESIUM SUSP 18 ML, LIDOCAINE VISCOUS 2% SOLN 6 ML, BARCODE IDENTIFIER 1 EACH PO ONE (10:45)
[2023-02-21] MEDS ORDERED: PANTOprazole 40 MG in SYRINGE 0 ML IV SCH (12:00)
--- NOTE | 2023-02-21 12:35 | Electrocardiogram Report ---
Test Reason : Blood Pressure : / mmHG Vent. Rate : 068 BPM Atrial Rate : 068 BPM P-R Int : 140 ms QRS Dur : 104 ms QT Int : 416 ms P-R-T Axes : 081 074 064 degrees QTc Int : 442 ms Normal sinus rhythm Minimal voltage criteria for LVH, may be normal variant Borderline ECG When compared with ECG of 27-MAY-2020 13:10, Questionable change in QRS axis Nonspecific T wave abnormality no longer evident in Inferior leads Confirmed by Marcos Alfonso ([id number]) on 02/21/2023 12:35:21 PM Referred By: REFERRED SELF Confirmed By:Marcos Alfonso
[2023-02-21] MEDS ORDERED: GI COCKTAIL ED USE PO ONE (13:14)
[2023-02-21] MEDS ORDERED: FLUTICASONE PROPIONATE NA SPR 16 GM BTL NAE PRN (13:59)
[2023-02-21] MEDS ORDERED: ALBUTEROL HFA 8 GM INHALER INH PRN (13:59)
[2023-02-21] MEDS ORDERED: ACETAMINOPHEN 325 MG TAB PO PRN (13:59)
--- NOTE | 2023-02-21 14:04 | XRay Report ---
KUB CLINICAL HISTORY: Vomiting. Generalized abdominal pain. FINDINGS: 2 AP supine abdominal radiographs are correlated with abdominal CT dated 01/03/2017. There is a nonobstructed abdominal bowel gas pattern. Moderate fecal retention is seen throughout the colon. No evidence of intraperitoneal free air is seen on these supine images. There are no abnormal abdomin al calcifications. Phleboliths are present in the pelvis. There is mild lumbosacral spondylosis. IMPRESSION: No acute abnormality is identified. Electronically signed by: Vazquez Smith M.D. 02/21/2023 2:02 PM
[2023-02-21] MEDS: LACTATED RINGER'S 1,000 ML IV SCH (15:43)
[2023-02-21] MEDS: ENOXAPARIN INJ 40 MG/0.4 ML SYR SQ SCH (17:06)
[2023-02-21] MEDS: TAMSULOSIN HCL 0.4 MG CAP PO SCH (17:07)
[2023-02-21] MEDS: FLUTICASONE/VILANTEROL 100/25MCG 14 PUFFS/INHALER INH SCH (18:21)
[2023-02-21] MEDS: FAMOTIDINE 20 MG in SYRINGE 3 ML IV SCH (21:14)
[2023-02-21] MEDS: GABAPENTIN 300 MG CAP PO SCH (21:14)
[2023-02-21] MEDS: ACETAMINOPHEN 325 MG TAB PO PRN (21:25)
[2023-02-21 22:29] LABS: Appearance Urine Clear (Clear); Bilirubin Urine Negative (Negative); Blood Urine Negative (Negative); Color Urine Yellow; Glucose Urine UA Trace (Negative); Ketones Urine Negative (Negative); Leukocyte Esterase Urine Negative (Negative); Nitrite Urine Negative (Negative); Protein Urine Negative (Negative); Specific Gravity Urine 1.023 (1.000-1.030); Urobilinogen Urine Negative (Negative)
[2023-02-22] MEDS ORDERED: FAMOTIDINE 20 MG in SYRINGE 3 ML IV SCH (01:30)
[2023-02-22] MEDS: LACTATED RINGER'S 1,000 ML IV SCH (02:32)
[2023-02-22 08:22] LABS: Hematocrit (blood only) 39.4 % (42.0-52.0); Hemoglobin 13.7 g/dl (14.0-18.0); Mean Corpuscular Hemoglobin 29.6 pg (25.0-34.0); Mean Corpuscular Hgb Conc 34.8 g/dL (32.0-36.0); Mean Corpuscular Volume 85.1 fL (80.0-100.0); Mean Platelet Volume 10.8 fL (9.4-12.4); Platelet Count 235 K/uL (130-400); RDW Coefficient of Variation 13.2 % (11.5-14.5); Red Blood Count 4.63 M/uL (4.70-6.10); White Blood Count 8.89 K/ul (4.8-10.8)
[2023-02-22 08:42] LABS: BUN Creatinine Ratio 20.5 (10-20); Calcium 8.3 mg/dl (8.6-10.3); Est GFR (Non-African American) 92.3 ml/min; Magnesium 1.9 mg/dl (1.7-2.4); Potassium 3.8 mmol/L (3.5-5.1)
[2023-02-22] MEDS: GABAPENTIN 300 MG CAP PO SCH ×2 (09:15→19:43)
[2023-02-22] MEDS: FAMOTIDINE 20 MG in SYRINGE 3 ML IV SCH ×2 (09:16→19:42)
[2023-02-22] MEDS: PANTOprazole 40 MG in SYRINGE 0 ML IV SCH ×2 (09:17→19:43)
[2023-02-22] MEDS: ROSUVASTATIN CALCIUM 20 MG TAB PO SCH ×2 (10:58→17:27)
[2023-02-22] MEDS: TAMSULOSIN HCL 0.4 MG CAP PO SCH (10:58)
[2023-02-22] MEDS: FLUTICASONE/VILANTEROL 100/25MCG 14 PUFFS/INHALER INH SCH (10:58)
[2023-02-22] MEDS ORDERED: Nursing to Pharmacy Communication SCH (15:15)
--- NOTE | 2023-02-22 16:12 | Hospitalist Progress Note ---
Date of Service February 22, 2023 Assessment & Plan (1) Nausea & vomiting: Plan: -Admit to med/surge -The patient is currently afebrile, hemodynamically stable, and stable on RA - SaO2 97% on rm air -His intractable upper abd pain now resolved on clear liquids, nausea, vomiting much improved, are likely due to his acute covid infection, poor oral intake, and gastritis will advance diet, dc IVF and if symptoms continue to improve, potential dc tomorrow -He has continued to use his BID Celebrex for chronic back pain, pt instructed not to use if unable to eat with associated nausea. Could be a major factor in his symptoms -He was recently seen by ophthalmology due to his right sided vision changes over the past year, they ordered an outpatient MRI of the brain to evaluate for possible lesions in the occipital lobe. Instructed that should absolutely follow up as directed, but may want to push back his scheduled time by a week due to infectivity of the Covid -At this time we will treat his nausea vomiting, and abdominal pain for acute gastritis, if no improvement would recommend CT of the head for further evaluation -Was given 1 mg IV ativan, 4 mg IV zofran, 1L NSS, and 10 mg IV dexamethasone in the ED -Hold all systemic steroids at this time as he is stable on RA and these will exacerbate his gastritis -Was given 20 mg IV famotidine now and continue with BID dosing, will start 40 mg IV pantoprazole daily, will give a GIU cocktail on admission, and try compazine to see if it is more effective in controlling his nausea -Was given 2 bags of LR at 100 mL/hr for his dehydration -BL SCD's and Sub-Q lovenox for DVT PPX -AM CBC, BMP (2) Diarrhea: Plan: -Multiple episodes of non-bloody diarrhea over the past 4-5 days -No recent abx use -Likely due to his current Covid 19 infection -Attempted to obtain stool studies including C. diff screening, unable to obtain, as pt no longer passing stool (3) Vision changes: Plan: -Has been having right-sided vision changes over the past year -Recently evaluated by Ophthalmology who ordered an outpatient MRI of the brain for evaluation of possible occipital lobe lesions, yet to be obtain -If his nausea and vomiting recur with resumption of diet, would obtain a CT of the brain for further evaluation of [employer] causes of his symptoms (4) COVID-19: Plan: -Tested positive one week ago, still positive on PCR testing today -Stable on RA -Supportive treatment for now with incentive spirometry, continue home breathing treatments -Monitor SPO2 and keep between 88-92% with his hx of COPD (5) Lumbosacral radiculopathy due to degenerative joint disease of spine: Plan: -Continue Gabapentin -Hold Celebrex until gastritis symptoms have resolved -PO tylenol q6h prn pain (1,2,3), headache, fever (6) Hypercholesterolemia: Plan: -Continue statin (7) Atrial tachycardia, paroxysmal: Plan: -Currently rate controlled -Conitnue to monitor (8) COPD (chronic obstructive pulmonary disease): Plan: -See covid 19 (9) BPH w urinary obs/LUTS: Plan: -Continue Flomax Plan The patient was discussed with Dr. Iglesias at the time of the admission Admission and Anticipated Discharge Date Admission Date: February 21, 2023 Subjective Generally feels better. No diarrhea and no stool productiontoday Review of Systems Constitutional: afebrile Eyes: has visual changes from rt eye, in process of being eval by opth, baseline status Respiratory: denies sob, does cough with deep inspirations Cardiovascular: Additional Comments: no chest pain Gastrointestinal: diarrhea has stopped, nausea markedly reduced, no vomiting Physical Exam Physical Exam: WDWN WM in NAD Constitutional: afebrile Neck: trachea midline, no thyromegaly Respiratory: Lungs clear, though with coughing on deep inspiration Cardiovascular: RRR, no murmur, no edema Gastrointestinal (Abdomen): soft, nontender, nl BS Neurologic: PERRL, EOMI, accommodation nl, no face palsy, no dysarthria Results & Data Results & Data Vital Signs (Past 12 Hours) Vital Signs Temp Pulse Resp BP Pulse Ox O2 Del Method 02/22/23 08:37 Room Air 02/22/23 08:03 36.7 C 52 L 18 142/73 H 97 Room Air PG Care Time/CCT Total # of Minutes Spent Total Time Spent with Patient: Total time spent is greater than 50% in coordination of care (as documented) at patient's floor/unit and/or counseling patient: Coding Level of Care Code 21111 SUB INP/OBS CARE 2/35MIN Diagnoses Nausea & vomiting R11.2 Diarrhea R19.7 Vision changes H53.9 COVID-19 U07.1 Lumbosacral radiculopathy due to degenerative joint disease of spine M47.27 Hypercholesterolemia E78.00 Atrial tachycardia, paroxysmal I47.1 COPD (chronic obstructive pulmonary disease) J44.9 BPH w urinary obs/LUTS N40.1; N13.8
[2023-02-22] MEDS: ENOXAPARIN INJ 40 MG/0.4 ML SYR SQ SCH (17:27)
[2023-02-22 21:44] LABS: Adenovirus F 40/41 PCR Not Detected (NotDetected); Astrovirus PCR Not Detected (NotDetected); Campylobacter PCR Not Detected (NotDetected); Cryptosporidium PCR Not Detected (NotDetected); Cyclospora cayetanensis PCR Not Detected (NotDetected); Entamoeba histolytica PCR Not Detected (NotDetected); Enteroaggregative E.coli(EAEC) Not Detected (NotDetected); Enteropathogenic E.coli (EPEC) Not Detected (NotDetected); Enterotoxigenic E.coli (ETEC) Not Detected (NotDetected); Giardia lamblia PCR Not Detected (NotDetected); Norovirus GI/GII PCR Not Detected (NotDetected); Plesiomonas shigelloides PCR Not Detected (NotDetected); Rotavirus A PCR Not Detected (NotDetected); Salmonella PCR Not Detected (NotDetected); Sapovirus PCR Not Detected (NotDetected); Shiga-like Toxin E.coli (STEC) Not Detected (NotDetected); Shigella/Enteroinvasive E.coli Not Detected (NotDetected); Vibrio cholerae PCR Not Detected (NotDetected); Vibrio species PCR Not Detected (NotDetected); Yersinia enterocolitica PCR Not Detected (NotDetected)
[2023-02-23] MEDS: ACETAMINOPHEN 325 MG TAB PO PRN ×2 (05:41→11:33)
[2023-02-23] MEDS: PANTOprazole 40 MG in SYRINGE 0 ML IV SCH (09:30)
[2023-02-23] MEDS: FAMOTIDINE 20 MG in SYRINGE 3 ML IV SCH (09:30)
[2023-02-23] MEDS: FLUTICASONE/VILANTEROL 100/25MCG 14 PUFFS/INHALER INH SCH (09:34)
[2023-02-23] MEDS: GABAPENTIN 300 MG CAP PO SCH (09:35)
[2023-02-23] MEDS: TAMSULOSIN HCL 0.4 MG CAP PO SCH (09:35)
[2023-02-23 10:18] LABS: Hematocrit (blood only) 38.4 % (42.0-52.0); Hemoglobin 13.3 g/dl (14.0-18.0); Mean Corpuscular Hemoglobin 29.6 pg (25.0-34.0); Mean Corpuscular Hgb Conc 34.6 g/dL (32.0-36.0); Mean Corpuscular Volume 85.5 fL (80.0-100.0); Mean Platelet Volume 10.8 fL (9.4-12.4); Platelet Count 256 K/uL (130-400); RDW Coefficient of Variation 13.3 % (11.5-14.5); RDW Standard Deviation 41.7 fL (36.4-46.3); Red Blood Count 4.49 M/uL (4.70-6.10); White Blood Count 6.59 K/ul (4.8-10.8)
[2023-02-23 10:36] LABS: BUN Creatinine Ratio 15.9 (10-20); Calcium 8.4 mg/dl (8.6-10.3); Creatinine Clr Calc Pharmacy 84.9 ml/min; Est GFR (African American) 104.5 ml/min; Est GFR (Non-African American) 90.1 ml/min; Magnesium 1.7 mg/dl (1.7-2.4); Potassium 3.5 mmol/L (3.5-5.1)
[2023-02-23] MEDS ORDERED: amLODIPine BESYLATE 5 MG TAB PO ONE (11:15)
--- NOTE | 2023-02-23 11:54 | Discharge Summary ---
Date of Service February 23, 2023 Admission HPI Per Admitting Provider Nitin is a 67 year old male with a PMH significant for COPD, hyperlipidemia, paroxysmal atrial tachycardia, GERD, and BPH who presented to the [facility] ED on 02/21/23 with a chief complaint of generalized weakness and intractable nausea/vomiting. Per the ED staff, the patient test positive for covid 19 approximately one week ago. He has had progressive generalized weakness and has been having frequent nausea and vomiting In the ED the patient was found to be afebrile, hemodynamically stable, and stable on RA. Labs were remarkable for a CBC WNL, cr of 1.03 (baseline appears to be 0.90), glucose of 131, stable electrolytes, AG of 13 with Bicarb of 20, LFT's WNL, high sen trop of 6.5, lipase of 16 with procal < 0.05, covid 19 positive but influenza and RSV negative. Chest xray was read as "No acute cardiopulmonary abnormality.". The patient was initially given 4 gm IV zofran, 1 mg IV ativan, 10 mg IV dexamethasone, and 1L NSS but he was unable to tolerate PO intake. We were asked to admit for observation due to his intractable nausea and vomiting. At the time of the exam the patient was lying in bed in no acute distress with his daughter sitting bedside, history was obtained from both. He states that he tested positive for Covid 19 on 02/14 on a home test. Since then he has been experiencing intractable non-blood nausea and vomiting multiple times a day. He has been unable to keep food or water down over the past 2-3 days. He has also been experiencing 3-5 episodes of non-bloody diarrhea daily, he denies recent antibiotic use. He has been having upper abdominal pain which is exacerbated with vomiting, he denies radiation of the pain. He states that he has chronic back pain for which he takes BID Celecoxib and Gabapentin. When asked, he states that he will also take additional Advil/Motrin for pain. His daughter corrected him saying that he takes tylenol for pain as well, no additional NSAIDs. He states that he has severe refulx at baseline and feels as though it has been getting worse over the past week. He denies recent fevers, chills, chest pain, SOB from baseline, dysuria, hematuria, melena, bloody BM's, LE swelling and recent trauma. The patient notes that he has been having headac hes and visual field changes in his right eye for the past year. He states that he was recently seen by an Conservation Science Officer for this issue and needs an MRI of his brain. Per chart review, the patient was seen by Dr. Lizzie Mccoy of [facility] on 02/09. Per her note from 02/09, there is concern for homonymous visual field deficit possibly caused by an occipital lobe lesion. Dr. Mccoy ordered an outpatient MRI of the brain which has not yet been obtained. We discussed code status, the patient tis a Full Code and wishes for his children to make medical decisions for him if he cannot make them himself. Please refer to Dr. Iglesias's Attestation for any changes to the treatment plan Principal Diagnosis Gastritis Discharge Exam General: A&Ox3. NAD. Cooperative. HEENT: Atraumatic, normocephalic. Pulm: CTAB A&P. -wheezes, -rales, -rhonchi. Symmetrical chest rise. No increased work of breathing. No respiratory distress. Cardiac: RRR, -mrg. Radial pulses intact and symmetrical. Abdominal: Nontender, nondistended, soft. BS present. CRANIAL NERVES: II: Pupils equal and reactive. Right eye is with lateral peripheral field loss. No field cut involving the left eye III, IV, : EOM intact, no gaze preference or deviation, no nystagmus. V: normal sensation in V1, V2, and V3 segments bilaterally VII: no asymmetry, no nasolabial fold flattening VIII: normal hearing to speech IX, X: normal palatal elevation, no uvular deviation XI: 5/5 head turn and 5/5 shoulder shrug bilaterally XII: midline tongue protrusion MOTOR: RUE: 5/5 clinical manager home care strength, finger flexion/extension, interosseus LUE: 5/5 clinical manager home care strength, finger flexion/extension, interosseus RLE: 5/5 to hip flexion, knee flexion/extension, ankle dorsiflexion/plantarflexion LLE: 5/5 to hip flexion, knee flexion/extension, ankle dorsiflexion/plantarflexion REFLEXES: 2/4 patellar SENSORY: Normal to touch in upper and lower extremities without deficit Discharge Data Allergies Allergy/AdvReac Type Severity Reaction Status Date / Time codeine Allergy Intermediate PASSES OUT Verified 02/21/23 08:31 hydrocodone Allergy Intermediate NAUSEA AND Verified 02/21/23 08:31 VOMITING propoxyphene Allergy Intermediate PASS OUT Verified 02/21/23 08:31 duloxetine [From Cymbalta] Allergy Mild stomach Verified 02/21/23 08:31 cramps Consultations 02/21/23 10:18 ED Decision to Admit Stat Hospital Course (1) Nausea & vomiting: Oral 67-year-old male who presented with severe nausea and vomiting with initial work-up suspicious for gastritis. He received Ativan, Zofran, Decadron, saline in the ER and then was continued on Protonix and Pepcid daily in addition to being given a GI cocktail. Patient rapidly clinically improved over the next day with resolution of his symptoms and wished for discharge home. On reevaluation given mild hypertension, his initial nausea/vomiting symptoms, and his focal vision loss was recommended that MRI be performed while inpatient. Specifically noted that he did receive dexamethasone which could cause symptomatic improvement if his nausea had been generated from an intracranial source. He reported that he would prefer to keep his MRI as outpatient and to be discharged home. CThead performed prior to discharge did not show any acute findings, masses, or mass effect. Discussed with patient that this does not exclude strokes, demyelinating disease, or cancer. Patient was discharged to continue PPI/H2, hold NSAIDs, and follow-up for his MRI which had been previously scheduled for 02/26/2023. (2) Diarrhea: -Multiple episodes of non-bloody diarrhea over the past 4-5 days, resolved by time of discharge -No recent abx use -Likely due to his current Covid 19 infection -Stool studies negative (3) Vision changes: -Has been having right-sided vision changes over the past year -Recently evaluated by Ophthalmology who ordered an outpatient MRI of the brain for evaluation of possible occipital lobe lesions, pending as outpatient (4) COVID-19: -Tested positive one week ago, still positive on PCR testing on admission -Stable on RA -Supportive treatment for now with incentive spirometry, continue home breathing treatments -Monitor SPO2 and keep between 88-92% with his hx of COPD (5) Lumbosacral radiculopathy due to degenerative joint disease of spine: -Continue Gabapentin -Hold Celebrex until gastritis symptoms have resolved (6) Hypercholesterolemia: -Continue statin (7) Atrial tachycardia, paroxysmal: -Currently rate controlled -Conitnue to monitor (8) COPD (chronic obstructive pulmonary disease): -See covid 19 (9) BPH w urinary obs/LUTS: -Continue Flomax Total Time Total Time Spent Total Time Spent (In Minutes): Time spend day of discharge 50 minutes including direct patient care, documentation, review of labs and images, and coordination of care. Discharge Plan Discharge Items Patient Disposition: Home - Self-Care Reason For Visit: GENERALIZED WEAKNESS, INTRACTABLE NAUSEA/VOMITTING Discharge Diagnosis: Gastritis Activity: Resume your previous activity Non-emergency contact: Primary Care Provider Call non-emergency contact if: you have any medication questions, your symptoms worsen and your pain is not controlled Follow-up/Referrals: Ramon Echavarria MD [Primary Care Provider] - 03/03/23 11:30 am Diet: Heart Healthy Addtl Attending Provider Instructions: You are seen in the hospital for nausea/vomiting which rapidly improved with antiacid treatment. Your nausea and vomiting was suspected to be due to gastritis. You have been continued on Protonix and Pepcid as below. You have had vision changes with vision loss in the lateral peripheral field of the right eye. This was also noted by your production manufacturing worker and is highly suspicious for a deficit being caused by a stroke, lesion, or mass. It is strongly recommended that you have a MRI. You are aware of this and have discussed this with both your production manufacturing worker and outpatient provider, and notes symptoms have been persistent for several weeks. Given your continued symptoms MRI while inpatient was offered; however, you preferred to continue outpatient follow-up and have the MRI performed as an outpatient rather than remain in the hospital for additional evaluation. A CThead did not show any acute abnormalities or evidence of mass/mass effect. if you develop any worsening vision, worsening headache, strength deficits, passing out, recurrent nausea/vomiting, chest pain or other symptoms please call 911 for immediate reevaluation in the emergency department. If you develop any new or worsening symptoms including fever, chills, sweats, chest pain, chest pressure, difficulty breathing, uncontrolled nausea/vomiting, rash, wheezing, passing out or nearly passing out, bleeding, black/bloody bowel movements, or other new or concerning symptoms please call your primary care physician, or call 911 for re-evaluation in the emergency department if you are very concerned. Pending Studies at Discharge: No Stand-Alone Forms: My [facility], Smoking Cessation Medications and DC Order Prescriptions: New pantoprazole [Protonix] 40 mg tablet,delayed release (DR/EC) 40 mg PO DAILY 28 Days Qty: 28 0RF famotidine [Pepcid] 20 mg tablet 20 mg PO BID PRN (Reason: stomach upset) 28 Days Qty: 84 0RF Continued esomeprazole magnesium [Nexium] 40 mg capsule,delayed release(DR/EC) 40 mg PO BID Qty: 60 11RF famotidine 40 mg tablet 40 mg PO BID Qty: 180 3RF rosuvastatin 20 mg tablet 20 mg PO QAM Qty: 90 3RF Breo Ellipta 100-25 mcg/dose blister with device 1 inh INHALATION DAILY PRN (Reason: Shortness Of Breath) Qty: 28 11RF fluticasone propionate [Flonase Allergy Relief] 50 mcg/actuation spray,suspension 2 spray INTRANASAL QAM PRN (Reason: Congestion) Qty: 18.2 5RF albuterol sulfate 90 mcg/actuation HFA aerosol inhaler 2 puff INH Q4H PRN (Reason: Shortness Of Breath) Qty: 8.5 0RF celecoxib 200 mg capsule 200 mg PO BID PRN (Reason: pain) Qty: 60 5RF tamsulosin [Flomax] 0.4 mg capsule 0.4 mg PO DAILY Qty: 90 3RF gabapentin 300 mg capsule 300 mg PO BID Rx Instructions: 300 mg orally each bedtime x1 week, then if needed increase dose to 300 mg twice daily x1 week, then if needed increase dose to 300 mg every 8 hours. Discharge Orders: Discharge Order (Routine); Ordered 02/23/23 Ordered By: Mansoor Curry/Other Patient Handouts: COVID-19 Home Care Admission Data Admit Date/Time: 02/21/23 10:30 Attending Provider: Mansoor Zamudio Admit Provider: Oscar Iglesias Primary Care Provider: Ramon Echavarria Other Providers: Oscar Iglesias Coding Level of Care Code 87205 INP/OBS DISCH >30 MIN Diagnoses Nausea & vomiting R11.2 Diarrhea R19.7 Vision changes H53.9 COVID-19 U07.1 Lumbosacral radiculopathy due to degenerative joint disease of spine M47.27 Hypercholesterolemia E78.00 Atrial tachycardia, paroxysmal I47.1 COPD (chronic obstructive pulmonary disease) J44.9 BPH w urinary obs/LUTS N40.1; N13.8
--- NOTE | 2023-02-23 13:30 | CT Scan Report ---
CT SCAN OF THE BRAIN WITHOUT IV CONTRAST CLINICAL HISTORY: Vision loss. Right-sided headaches. Nausea and vomiting. COMPARISON STUDY: No priors. TECHNIQUE: Unenhanced axial CT scan of the brain is performed from the vertex to the skull base. A do se lowering technique was utilized adhering to the principles of ALARA. CT DOSE: 614.27 mGy.cm FINDINGS: Brain parenchyma: There is minimal microangiopathic change. There is no hemorrhage, mass effect, or e vidence of acute territorial ischemia by CT criteria. Estes-white matter differentiation is preserved. No extra-axial fluid collection is seen. Ventricles, sulci, cisterns: Normal configuration. Intracranial vasculature: There is atherosclerotic calcification of the cavernous carotid arteries. Calvarium: Unremarkable. Sinuses and mastoids: The visualized paranasal sinuses are clear. The mastoid air cells are well pneu matized. Orbits: The bony orbits are grossly intact. IMPRESSION: There is no hemorrhage, mass effect, or evidence of acute territorial ischemia by CT rafal patel. ACT 112: Negative or not required by law. Electronically signed by: Vazquez Smith M.D. 02/23/2023 1:29 PM
== END 2023-02-23 14:48 | disposition home or self-care (01) ==
LOC: EDINP 07:24 → ED 07:24 → SUATTDRO 10:30 → 3N 14:00